=== PATIENT | female | born 1970 | race Two or more races ===

== ENCOUNTER 2020-03-06 12:33 | Inpatient (IN) | payer OTHER ==
[~2020-03-06] VITALS: Ht 175.3 cm; Wt 101.1 kg
[2020-03-06] MEDS ORDERED: MORPHINE SULFATE 10 MG/ML VIAL. IV ONE (13:00)
[2020-03-06 13:08] LABS: BASO % 1 % (0-3); EOS # 0.2 x10^3/uL (0.0-0.7); EOS % 3 % (0-3); HEMATOCRIT 39.1 % (36.0-47.0); HEMOGLOBIN 13.3 g/dL (12.0-15.5); LYMPH % 32 % (24-48); MEAN CORPUSCULAR HEMOGLOBIN 30 pg (25-35); MEAN CORPUSCULAR HGB CONC 34 g/dL (31-37); MEAN CORPUSCULAR VOLUME 89 fL (79-100); MONO # 0.7 x10^3/uL (0.0-1.1); MONO % 11 % (0-9); NEUT # 3.4 x10^3/uL (1.8-7.7); NEUT % 54 % (31-73); PLATELET COUNT 231 x10^3/uL (140-400); RED BLOOD COUNT 4.41 x10^6/uL (3.50-5.40); RED CELL DISTRIBUTION WIDTH 13.3 % (11.5-14.5); WHITE BLOOD COUNT 6.3 x10^3/uL (4.0-11.0)
[2020-03-06 13:08] LABS: BILIRUBIN,URINE NEGATIVE (NEG); CLARITY,URINE CLEAR; COLOR,URINE YELLOW; NITRITE,URINE NEGATIVE (NEG); PROTEIN,URINE NEGATIVE (NEG-TRACE)
[2020-03-06 13:17] LABS: SQUAMOUS EPITHELIAL CELL,UR MANY /LPF
[2020-03-06 13:18] LABS: CALCIUM 8.2 mg/dL (8.5-10.1); CREATININE 0.8 mg/dL (0.6-1.0); GFR 75.6; POTASSIUM 3.9 mmol/L (3.5-5.1)
[2020-03-06 13:19] LABS: BACTERIA,URINE MANY /HPF (0-FEW)
[2020-03-06 13:23] LABS: BARBITURATES NEG (NEG); BENZODIAZEPINES POS (NEG); CANNABINOIDS NEG (NEG); COCAINE NEG (NEG); METHADONE NEG (NEG); OPIATES POS (NEG); PHENCYCLIDINE NEG (NEG)
[2020-03-06 13:24] LABS: AMPHETAMINE/METHAMPHETAMINE NEG (NEG)
[2020-03-06 13:24] LABS: ALBUMIN 3.8 g/dL (3.4-5.0); ALBUMIN/GLOBULIN RATIO 1.1 (1.0-1.7); MAGNESIUM 1.7 mg/dL (1.8-2.4); TOTAL BILIRUBIN 0.5 mg/dL (0.2-1.0); TOTAL PROTEIN 7.3 g/dL (6.4-8.2)
--- NOTE | 2020-03-06 13:28 | PHYS DOC ---
Past Medical History Past Medical History: Anxiety, Depression Additional Past Medical Histor: vin Past Surgical History: Cholecystectomy, Gastric Bypass, Tonsillectomy Additional Past Surgical Histo: EMILIA-EN-Y, INTUSSUSCEPTION, UTERINE ABLATION, BREAST AUG. Smoking Status: Never Smoker Alcohol Use: None General Adult EDM: Chief Complaint: ABDOMINAL PAIN HPI: HPI: Patient is a 50 year old female with a history of depression, anxiety, gastric bypass/Emilia En Y roughly 6 years ago, who presents to the ED today complaining of 3 out of 10 contraction pain at the epigastric region that began 1-1/2 hours ago. Patient reports having intussusceptions with multiple surgeries due to complications from gastric bypass. Denies any nausea, vomiting, denies diarrhea . Denies any constipation. She states she tried taking her Librium which was prescribed for abd pain with no relief. She states she tried drinking a sip of water to help replace it with no relief. Review of Systems: Review of Systems: Constitutional: Denies fever or chills. [] Eyes: Denies change in visual acuity. [] HENT: Denies nasal congestion or sore throat. [] Respiratory: Denies cough or shortness of breath. [] Cardiovascular: Denies chest pain or edema. [] GI: Reports abdominal pain, denies nausea, vomiting, bloody stools or diarrhea. [] : Denies dysuria. [] Musculoskeletal: Denies back pain or joint pain. [] Integument: Denies rash. [] Neurologic: Denies headache, focal weakness or sensory changes. [] Psychiatric: Denies depression or anxiety. [] Heart Score: Risk Factors: Risk Factors: DM, Current or recent (<one month) smoker, HTN, HLP, family history of CAD, obesity. Risk Scores: Score 0 - 3: 2.5% MACE over next 6 weeks - Discharge Home Score 4 - 6: 20.3% MACE over next 6 weeks - Admit for Clinical Observation Score 7 - 10: 72.7% MACE over next 6 weeks - Early Invasive Strategies Current Medications: Current Medications Medications (Trade) Dose Ordered Sig/Preet Start Time Stop Time Status Last Admin Dose Admin Famotidine (Pepcid Vial) 20 mg 1X ONCE 03/06/20 13:30 03/06/20 13:31 03/06/20 13:18 20 MG Morphine Sulfate (Morphine Sulfate) 5 mg 1X ONCE 03/06/20 13:00 03/06/20 13:09 DC 03/06/20 13:15 5 MG Ondansetron HCl (Zofran) 4 mg 1X ONCE 03/06/20 13:30 03/06/20 13:31 03/06/20 13:14 4 MG Allergies: Allergies: Allergies Coded Allergies Type Severity Reaction Last Updated Verified Iodine and Iodide Containing Produc Allergy Unknown 03/06/20 Yes Sulfa (Sulfonamide Antibiotics) Allergy Unknown 03/06/20 Yes codeine Allergy Unknown 03/06/20 Yes shellfish derived Allergy Unknown 03/06/20 Yes Physical Exam: PE: Constitutional: Well developed, well nourished, no acute distress, non-toxic appearance. [] HENT: Normocephalic, atraumatic, bilateral external ears normal, oropharynx moist, no oral exudates, nose normal. [] Eyes: PERRLA, EOMI, conjunctiva normal, no discharge. [] Neck: Normal range of motion, no tenderness, supple, no stridor. [] Cardiovascular:Heart rate regular rhythm, no murmur [] Lungs & Thorax: Bilateral breath sounds clear to auscultation [] Abdomen: Bowel sounds normal, soft, mild tenderness at the epigastric region, no right upper quadrant or right lower quadrant tenderness, no masses, no pulsatile masses. [] Skin: Warm, dry, no erythema, no rash. [] Back: No tenderness, no CVA tenderness. [] Extremities: No tenderness, no cyanosis, no clubbing, ROM intact, no edema. [] Neurologic: Alert and oriented X 3, normal motor function, normal sensory function, no focal deficits noted. [] Psychologic: Affect normal, judgement normal, mood normal. [] Current Patient Data: Labs: Laboratory Tests Test 03/06/20 12:40 03/06/20 12:50 Urine Collection Type Unknown Urine Color Yellow Urine Clarity Clear Urine pH 5.0 (<5.0-8.0) Urine Specific [place] 1.025 (1.000-1.030) Urine Protein Negative mg/dL (NEG-TRACE) Urine Glucose (UA) Negative mg/dL (NEG) Urine Ketones (Stick) Negative mg/dL (NEG) Urine Blood Negative (NEG) Urine Nitrite Negative (NEG) Urine Bilirubin Negative (NEG) Urine Urobilinogen Dipstick 1.0 mg/dL (0.2 mg/dL) Urine Leukocyte Esterase Small (NEG) Urine RBC 1-2 /HPF (0-2) Urine WBC 11-20 /HPF (0-4) Urine Squamous Epithelial Cells Many /LPF Urine Bacteria Many /HPF (0-FEW) Urine Mucus Marked /LPF White Blood Count 6.3 x10^3/uL (4.0-11.0) Red Blood Count 4.41 x10^6/uL (3.50-5.40) Hemoglobin 13.3 g/dL (12.0-15.5) Hematocrit 39.1 % (36.0-47.0) Mean Corpuscular Volume 89 fL (79-100) Mean Corpuscular Hemoglobin 30 pg (25-35) Mean Corpuscular Hemoglobin Concent 34 g/dL (31-37) Red Cell Distribution Width 13.3 % (11.5-14.5) Platelet Count 231 x10^3/uL (140-400) Neutrophils (%) (Auto) 54 % (31-73) Lymphocytes (%) (Auto) 32 % (24-48) Monocytes (%) (Auto) 11 % (0-9) H Eosinophils (%) (Auto) 3 % (0-3) Basophils (%) (Auto) 1 % (0-3) Neutrophils # (Auto) 3.4 x10^3/uL (1.8-7.7) Lymphocytes # (Auto) 2.0 x10^3/uL (1.0-4.8) Monocytes # (Auto) 0.7 x10^3/uL (0.0-1.1) Eosinophils # (Auto) 0.2 x10^3/uL (0.0-0.7) Basophils # (Auto) 0.0 x10^3/uL (0.0-0.2) Sodium Level 140 mmol/L (136-145) Potassium Level 3.9 mmol/L (3.5-5.1) Chloride Level 104 mmol/L (98-107) Carbon Dioxide Level 30 mmol/L (21-32) Anion Gap 6 (6-14) Blood Urea Nitrogen 19 mg/dL (7-20) Creatinine 0.8 mg/dL (0.6-1.0) Estimated GFR (Cockcroft-Gault) 75.6 BUN/Creatinine Ratio 24 (6-20) H Glucose Level 76 mg/dL (70-99) Calcium Level 8.2 mg/dL (8.5-10.1) L Magnesium Level Pending Total Bilirubin Pending Aspartate Amino Transferase (AST) Pending Alanine Aminotransferase (ALT) Pending Alkaline Phosphatase Pending Total Protein Pending Albumin Pending Albumin/Globulin Ratio Pending Lipase Pending Ethyl Alcohol Level < 10 mg/dL (0-10) Laboratory Tests 03/06/20 12:50 Laboratory Tests 03/06/20 12:50 Vital Signs: Vital Signs Date Time Temp Pulse Resp B/P (MAP) Pulse Ox O2 Delivery O2 Flow Rate FiO2 03/06/20 13:15 Room Air 03/06/20 12:35 98.2 62 20 123/85 (98) 98 98.2 EKG: EKG: [] Radiology/Procedures: Radiology/Procedures: []PROCEDURE: CT ABDOMEN PELVIS WO CONTRAST CT abdomen pelvis without contrast dated 03/06/2020. No comparison available. Clinical data indication: Abdominal pain. History of prior gastric bypass. TECHNIQUE: Contiguous axial imaging the abdomen pelvis performed without the administration of IV contrast. No oral contrast administered. One or more of the following individualized dose reduction techniques were utilized for this examination: 1. Automated exposure control 2. Adjustment of the mA and/or kV according to patient size 3. Use of iterative reconstruction technique FINDINGS: Limited images of lung bases are clear. Heart size within normal limits. No pleural or pericardial effusion. Solid abdominal viscera not well evaluated in the absence of contrast material. No apparent attenuation abnormality of the liver or spleen. The spleen is normal in size. Pancreas, adrenal glands and kidneys are unremarkable. No stone or hydronephrosis. Gallbladder surgically absent. Evidence of prior gastric bypass. The GI tract is normal in caliber and contour. No focal bowel wall thickening. Appendix normal in caliber. No ascites or lymphadenopathy. There are a few scattered diverticula within the colon. No paracolonic inflammatory changes. No ascites or lymphadenopathy. The abdominal aorta is normal in caliber. Images of pelvis show nondistended urinary bladder. Uterus and adnexa are unremarkable. No free fluid or lymphadenopathy. Bone windows show no acute findings. Mild lower lumbar spondylosis. IMPRESSION: 1. No acute abnormality of abdomen or pelvis. No renal stone or hydronephrosis. 2. Normal appendix. 3. Status post cholecystectomy and prior gastric bypass. Electronically signed by: Marco Lam MD (03/06/2020 1:42 PM) [facility] [place] DICTATED and SIGNED BY: MARCO LAM MD DATE: 03/06/20 1342 Course & Med Decision Making: Course & Med Decision Making Pertinent Labs and Imaging studies reviewed. (See chart for details) This is a 50-year-old female patient presenting to the ED today complaining of epigastric abdominal pain that began an hour and a half ago. Patient has history of gastric bypass with multiple intussusception of the intestines and surgeries to fix this. Labs are negative. CT of the abdomen and pelvic is negative. Patient has been complaining about pain since arrival to the ED. She had been given 2 doses of morphine with no relief. Dilaudid ordered. I spoke to her about her results. She states she believes she has intussusception that typically does not show up on CAT scan. Informed patient she will be admitted and general surgery will be consulted. Spoke with Dr. Roy who will f/u with patient Spoke with Dr. Juarez who accepted patient for admission Shabana Disclaimer: Shabana Disclaimer: This electronic medical record was generated, in whole or in part, using a voice recognition dictation system. Departure Departure Impression: Primary Impression: Intractable abdominal pain Disposition: ADMITTED INPATIENT Condition: STABLE Referrals: NO PCP (PCP) Justicifation of Admission Dx: Justifications for Admission: Justification of Admission Dx: Yes Comments: intractible abdominal pain CHRISTIE ARECHIGA APRN Mar 06, 2020 13:28
[2020-03-06] MEDS ORDERED: FAMOTIDINE 20 MG/2 ML VIAL IVP ONE (13:30)
[2020-03-06] MEDS ORDERED: ONDANSETRON PF 4 MG/2 ML VIAL. IVP ONE ×2 (13:30→15:30)
--- NOTE | 2020-03-06 13:45 | RAD ---
CT abdomen pelvis without contrast dated 03/06/2020. No comparison available. Clinical data indication: Abdominal pain. History of prior gastric bypass. TECHNIQUE: Contiguous axial imaging the abdomen pelvis performed without the administration of IV contrast. No oral contrast administered. One or more of the following individualized dose reduction techniques were utilized for this examination: 1. Automated exposure control 2. Adjustment of the mA and/or kV according to patient size 3. Use of iterative reconstruction technique FINDINGS: Limited images of lung bases are clear. Heart size within normal limits. No pleural or pericardial effusion. Solid abdominal viscera not well evaluated in the absence of contrast material. No apparent attenuation abnormality of the liver or spleen. The spleen is normal in size. Pancreas, adrenal glands and kidneys are unremarkable. No stone or hydronephrosis. Gallbladder surgically absent. Evidence of prior gastric bypass. The GI tract is normal in caliber and contour. No focal bowel wall thickening. Appendix normal in caliber. No ascites or lymphadenopathy. There are a few scattered diverticula within the colon. No paracolonic inflammatory changes. No ascites or lymphadenopathy. The abdominal aorta is normal in caliber. Images of pelvis show nondistended urinary bladder. Uterus and adnexa are unremarkable. No free fluid or lymphadenopathy. Bone windows show no acute findings. Mild lower lumbar spondylosis. IMPRESSION: 1. No acute abnormality of abdomen or pelvis. No renal stone or hydronephrosis. 2. Normal appendix. 3. Status post cholecystectomy and prior gastric bypass. Electronically signed by: Marco Lam MD (03/06/2020 1:42 PM) [facility]
[2020-03-06] MEDS ORDERED: HYDROmorphone 2 MG/ML VIAL IV ONE ×2 (14:00→15:30)
--- NOTE | 2020-03-06 15:17 | PDOC1 ---
History and Physical Date of Admission Date of Admission DATE: 03/06/20 TIME: 15:16 Identification/Chief Complaint Chief Complaint SEEN IN ER WITH EPIGASTRIC PAIN, HX BARIATRIC SURGERY OUT OF STATE 50 year old female with a history of depression, anxiety, gastric bypass/Emilia En Y roughly 6 years ago, who presents to the ED today complaining of 3 out of 10 contraction pain at the epigastric region that began 1-1/2 hours ago. Patient reports having intussusceptions with multiple surgeries due to complications from gastric bypass. Denies any nausea, vomiting, denies diarrhea. Denies any constipation. She states she tried taking her Librium which was prescribed for abd pain with no relief. She states she tried drinking a sip of water to help replace it with no relief. 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 Smoking Status: Never Smoker Alcohol Use: None FHX OBESITY Cardiovascular: No pertinent hx, Hyperlipidemia Heme/Onc: No pertinent hx ENT: No pertinent hx Renal/: No pertinent hx Family History Family History: High Cholestrol Social History Smoke: No ALCOHOL: none Drugs: None Current Medications Current Medications Current Medications Famotidine (Pepcid Vial) 20 mg 1X ONCE IVP Last administered on 03/06/20at 13:18; Start 03/06/20 at 13:30; Stop 03/06/20 at 13:31; Status DC Ondansetron HCl (Zofran) 4 mg 1X ONCE IVP Last administered on 03/06/20at 13:14; Start 03/06/20 at 13:30; Stop 03/06/20 at 13:31; Status DC Morphine Sulfate (Morphine Sulfate) 5 mg 1X ONCE IV Last administered on 03/06/20at 13:15; Start 03/06/20 at 13:00; Stop 03/06/20 at 13:09; Status DC Hydromorphone HCl (Dilaudid) 1 mg 1X ONCE IV Last administered on 03/06/20at 14:06; Start 03/06/20 at 14:00; Stop 8/6/20 at 14:01; Status DC Allergies Allergies: Coded Allergies: Iodine and Iodide Containing Produc (Verified Allergy, Unknown, 03/06/20) Sulfa (Sulfonamide Antibiotics) (Verified Allergy, Unknown, 03/06/20) codeine (Verified Allergy, Unknown, 03/06/20) shellfish derived (Verified Allergy, Unknown, 03/06/20) ROS Review of System Review of Systems: Constitutional: Denies fever or chills. [] Eyes: Denies change in visual acuity. [] HENT: Denies nasal congestion or sore throat. [] Respiratory: Denies cough or shortness of breath. [] Cardiovascular: Denies chest pain or edema. [] GI: Reports abdominal pain, denies nausea, vomiting, bloody stools or diarrhea. [] : Denies dysuria. [] Musculoskeletal: Denies back pain or joint pain. [] Integument: Denies rash. [] Neurologic: Denies headache, focal weakness or sensory changes. [] Psychiatric: Denies depression or anxiety. [] 14 pt ros otherwise neg PSYCHOLOGICAL ROS: YES: Anxiety; No: Behavioral Disorder, Concentration difficultie, Decreased libido, Depression, Disorientation, Hallucinations, Hostility, Irritablity, Memory difficulties, Mood Swings, Obsessive thoughts, Physical abuse, Sexual abuse, Sleep disturbances, Suicidal ideation, Other Hematological and Lymphatic: No: Bleeding Problems, Blood Clots, Blood Transfusions, Brusing, Night Sweats, Pallor, Swollen Lymph Nodes, Other Gastrointestinal: Yes Nausea, Yes Vomiting, Yes Abdominal Pain; No Diarrhea, No Constipation, No Melena, No Hematochezia, No Other Genitourinary: No Dysuria, No Frequency, No Incontinence, No Hematuria, No Retention, No Discharge, No Urgency, No Pain, No Flank Pain, No Other, No , No , No , No , No , No , No Physical Exam Physical Exam Constitutional: Well developed, well nourished, mild acute distress, non-toxic appearance. [] HENT: Normocephalic, atraumatic, bilateral external ears normal, oropharynx moist, no oral exudates, nose normal. [] Eyes: PERRLA, EOMI, conjunctiva normal, no discharge. [] Neck: Normal range of motion, no tenderness, supple, no stridor. [] Cardiovascular:Heart rate regular rhythm, no murmur [] Lungs & Thorax: Bilateral breath sounds clear to auscultation [] Abdomen: Bowel sounds normal, soft, mild tenderness at the epigastric region, no right upper quadrant or right lower quadrant tenderness, no masses, no pulsatile masses. [] Skin: Warm, dry, no erythema, no rash. [] Back: No tenderness, no CVA tenderness. [] Extremities: No tenderness, no cyanosis, no clubbing, ROM intact, no edema. [] Neurologic: Alert and oriented X 3, normal motor function, normal sensory function, no focal deficits noted. [] Psychologic: Affect normal, judgment normal, mood normal. [] General: Alert, Oriented X3, Cooperative, mild distress HEENT: Atraumatic, PERRLA, EOMI, Mucous membr. moist/pink Lungs: Clear to auscultation, Normal air movement Heart: S1S2, RRR, no thrills Breasts: Not examined Abdomen: Normal bowel sounds, Soft Rectal Exam: not examined PELVIC: Examination not indicated Extremities: No cyanosis, No edema Skin: No rashes, No breakdown Neuro: Normal speech, Strength at 5/5 X4 ext, Normal tone, Sensation intact, Cranial nerves 3-12 NL Psych/Mental Status: Mental status NL, Mood NL Vitals Vitals Vital Signs Date Time Temp Pulse Resp B/P (MAP) Pulse Ox O2 Delivery O2 Flow Rate FiO2 03/06/20 14:06 Room Air 03/06/20 12:35 98.2 62 20 123/85 (98) 98 98.2 Labs Labs Laboratory Tests Test 03/06/20 12:40 03/06/20 12:50 Urine Collection Type Unknown Urine Color Yellow Urine Clarity Clear Urine pH 5.0 (<5.0-8.0) Urine Specific [place] 1.025 (1.000-1.030) Urine Protein Negative mg/dL (NEG-TRACE) Urine Glucose (UA) Negative mg/dL (NEG) Urine Ketones (Stick) Negative mg/dL (NEG) Urine Blood Negative (NEG) Urine Nitrite Negative (NEG) Urine Bilirubin Negative (NEG) Urine Urobilinogen Dipstick 1.0 mg/dL (0.2 mg/dL) Urine Leukocyte Esterase Small (NEG) Urine RBC 1-2 /HPF (0-2) Urine WBC 11-20 /HPF (0-4) Urine Squamous Epithelial Cells Many /LPF Urine Bacteria Many /HPF (0-FEW) Urine Mucus Marked /LPF Urine Opiates Screen Pos (NEG) Urine Methadone Screen Neg (NEG) Urine Barbiturates Neg (NEG) Urine Phencyclidine Screen Neg (NEG) Urine Amphetamine/Methamphetamine Neg (NEG) Urine Benzodiazepines Screen Pos (NEG) Urine Cocaine Screen Neg (NEG) Urine Cannabinoids Screen Neg (NEG) Urine Ethyl Alcohol Neg (NEG) White Blood Count 6.3 x10^3/uL (4.0-11.0) Red Blood Count 4.41 x10^6/uL (3.50-5.40) Hemoglobin 13.3 g/dL (12.0-15.5) Hematocrit 39.1 % (36.0-47.0) Mean Corpuscular Volume 89 fL (79-100) Mean Corpuscular Hemoglobin 30 pg (25-35) Mean Corpuscular Hemoglobin Concent 34 g/dL (31-37) Red Cell Distribution Width 13.3 % (11.5-14.5) Platelet Count 231 x10^3/uL (140-400) Neutrophils (%) (Auto) 54 % (31-73) Lymphocytes (%) (Auto) 32 % (24-48) Monocytes (%) (Auto) 11 % (0-9) Eosinophils (%) (Auto) 3 % (0-3) Basophils (%) (Auto) 1 % (0-3) Neutrophils # (Auto) 3.4 x10^3/uL (1.8-7.7) Lymphocytes # (Auto) 2.0 x10^3/uL (1.0-4.8) Monocytes # (Auto) 0.7 x10^3/uL (0.0-1.1) Eosinophils # (Auto) 0.2 x10^3/uL (0.0-0.7) Basophils # (Auto) 0.0 x10^3/uL (0.0-0.2) Sodium Level 140 mmol/L (136-145) Potassium Level 3.9 mmol/L (3.5-5.1) Chloride Level 104 mmol/L (98-107) Carbon Dioxide Level 30 mmol/L (21-32) Anion Gap 6 (6-14) Blood Urea Nitrogen 19 mg/dL (7-20) Creatinine 0.8 mg/dL (0.6-1.0) Estimated GFR (Cockcroft-Gault) 75.6 BUN/Creatinine Ratio 24 (6-20) Glucose Level 76 mg/dL (70-99) Calcium Level 8.2 mg/dL (8.5-10.1) Magnesium Level 1.7 mg/dL (1.8-2.4) Total Bilirubin 0.5 mg/dL (0.2-1.0) Aspartate Amino Transf (AST/SGOT) 28 U/L (15-37) Alanine Aminotransferase (ALT/SGPT) 25 U/L (14-59) Alkaline Phosphatase 102 U/L (46-116) Total Protein 7.3 g/dL (6.4-8.2) Albumin 3.8 g/dL (3.4-5.0) Albumin/Globulin Ratio 1.1 (1.0-1.7) Lipase 83 U/L (73-393) Ethyl Alcohol Level < 10 mg/dL (0-10) Laboratory Tests Test 03/06/20 12:40 03/06/20 12:50 Urine Collection Type Unknown Urine Color Yellow Urine Clarity Clear Urine pH 5.0 (<5.0-8.0) Urine Specific [place] 1.025 (1.000-1.030) Urine Protein Negative mg/dL (NEG-TRACE) Urine Glucose (UA) Negative mg/dL (NEG) Urine Ketones (Stick) Negative mg/dL (NEG) Urine Blood Negative (NEG) Urine Nitrite Negative (NEG) Urine Bilirubin Negative (NEG) Urine Urobilinogen Dipstick 1.0 mg/dL (0.2 mg/dL) Urine Leukocyte Esterase Small (NEG) Urine RBC 1-2 /HPF (0-2) Urine WBC 11-20 /HPF (0-4) Urine Squamous Epithelial Cells Many /LPF Urine Bacteria Many /HPF (0-FEW) Urine Mucus Marked /LPF Urine Opiates Screen Pos (NEG) Urine Methadone Screen Neg (NEG) Urine Barbiturates Neg (NEG) Urine Phencyclidine Screen Neg (NEG) Urine Amphetamine/Methamphetamine Neg (NEG) Urine Benzodiazepines Screen Pos (NEG) Urine Cocaine Screen Neg (NEG) Urine Cannabinoids Screen Neg (NEG) Urine Ethyl Alcohol Neg (NEG) White Blood Count 6.3 x10^3/uL (4.0-11.0) Red Blood Count 4.41 x10^6/uL (3.50-5.40) Hemoglobin 13.3 g/dL (12.0-15.5) Hematocrit 39.1 % (36.0-47.0) Mean Corpuscular Volume 89 fL (79-100) Mean Corpuscular Hemoglobin 30 pg (25-35) Mean Corpuscular Hemoglobin Concent 34 g/dL (31-37) Red Cell Distribution Width 13.3 % (11.5-14.5) Platelet Count 231 x10^3/uL (140-400) Neutrophils (%) (Auto) 54 % (31-73) Lymphocytes (%) (Auto) 32 % (24-48) Monocytes (%) (Auto) 11 % (0-9) Eosinophils (%) (Auto) 3 % (0-3) Basophils (%) (Auto) 1 % (0-3) Neutrophils # (Auto) 3.4 x10^3/uL (1.8-7.7) Lymphocytes # (Auto) 2.0 x10^3/uL (1.0-4.8) Monocytes # (Auto) 0.7 x10^3/uL (0.0-1.1) Eosinophils # (Auto) 0.2 x10^3/uL (0.0-0.7) Basophils # (Auto) 0.0 x10^3/uL (0.0-0.2) Sodium Level 140 mmol/L (136-145) Potassium Level 3.9 mmol/L (3.5-5.1) Chloride Level 104 mmol/L (98-107) Carbon Dioxide Level 30 mmol/L (21-32) Anion Gap 6 (6-14) Blood Urea Nitrogen 19 mg/dL (7-20) Creatinine 0.8 mg/dL (0.6-1.0) Estimated GFR (Cockcroft-Gault) 75.6 BUN/Creatinine Ratio 24 (6-20) Glucose Level 76 mg/dL (70-99) Calcium Level 8.2 mg/dL (8.5-10.1) Magnesium Level 1.7 mg/dL (1.8-2.4) Total Bilirubin 0.5 mg/dL (0.2-1.0) Aspartate Amino Transf (AST/SGOT) 28 U/L (15-37) Alanine Aminotransferase (ALT/SGPT) 25 U/L (14-59) Alkaline Phosphatase 102 U/L (46-116) Total Protein 7.3 g/dL (6.4-8.2) Albumin 3.8 g/dL (3.4-5.0) Albumin/Globulin Ratio 1.1 (1.0-1.7) Lipase 83 U/L (73-393) Ethyl Alcohol Level < 10 mg/dL (0-10) Images Images CT abdomen pelvis without contrast dated 03/06/2020. No comparison available. Clinical data indication: Abdominal pain. History of prior gastric bypass. TECHNIQUE: Contiguous axial imaging the abdomen pelvis performed without the administration of IV contrast. No oral contrast administered. One or more of the following individualized dose reduction techniques were utilized for this examination: 1. Automated exposure control 2. Adjustment of the mA and/or kV according to patient size 3. Use of iterative reconstruction technique FINDINGS: Limited images of lung bases are clear. Heart size within normal limits. No pleural or pericardial effusion. Solid abdominal viscera not well evaluated in the absence of contrast material. No apparent attenuation abnormality of the liver or spleen. The spleen is normal in size. Pancreas, adrenal glands and kidneys are unremarkable. No stone or hydronephrosis. Gallbladder surgically absent. Evidence of prior gastric bypass. The GI tract is normal in caliber and contour. No focal bowel wall thickening. Appendix normal in caliber. No ascites or lymphadenopathy. There are a few scattered diverticula within the colon. No paracolonic inflammatory changes. No ascites or lymphadenopathy. The abdominal aorta is normal in caliber. Images of pelvis show nondistended urinary bladder. Uterus and adnexa are unremarkable. No free fluid or lymphadenopathy. Bone windows show no acute findings. Mild lower lumbar spondylosis. IMPRESSION: 1. No acute abnormality of abdomen or pelvis. No renal stone or hydronephrosis. 2. Normal appendix. 3. Status post cholecystectomy and prior gastric bypass. Electronically signed by: Marco Lam MD (03/06/2020 1:42 PM) [facility] [place] SIGNED BY: MARCO LAM MD DATE: 03/06/20 134 VTE Prophylaxis Ordered VTE Prophylaxis Devices: Yes VTE Pharmacological Prophylaxi: Yes Assessment/Plan Assessment/Plan IMPRESSION: 1. intractable epigastric pain 2. No acute abnormality of abdomen or pelvis. No renal stone or hydronephrosis. by CT 03/06 3. Normal appendix. 4. Status post cholecystectomy and prior gastric bypass. 2013 5. OBESITY plan admit NPO Consult DR DE PAZ Reviewed with Dr De Paz, no definite surgical indications will consult GI PLAN TRANSFER TO [facility] when bed available dvt prophylaxis iv fluid support iv pain control HOME MEDS D/W ER DR Abdifation of Admission Dx: Justifications for Admission: Justification of Admission Dx: Yes Hypertension: [place] Worsening of Sym Comments: INTRACTABLE PAIN EDUARD AWAD MD Mar 06, 2020 15:17
[2020-03-06] MEDS ORDERED: HYDROmorphone 2 MG/ML VIAL IV PRN ×2 (16:00→17:30)
[2020-03-06] MEDS ORDERED: IV NORMAL SALINE 1000ML BAG 1,000 ML IV ONE (16:00)
[2020-03-06] MEDS ORDERED: ONDANSETRON PF 4 MG/2 ML VIAL. IV PRN ×2 (16:00→17:30)
--- NOTE | 2020-03-06 16:13 | PDOC2 ---
OLI CLINE HEMATOLOGIST ONCOLOGIST 03/06/20 1613: CONSULT Date of Consult Date of Consult DATE: 03/06/20 TIME: 16:04 Reason for Consult Reason for Consult: abd pain Referring Physician Referring Physician: ER Identification/Chief Complaint Chief Complaint abdominal pain Source Source: Chart review, Patient History of Present Illness Reason for Visit: Reports acute onset of epigastric pain. This occurs frequently, reports has had 6 surgeries for intussusception. The CTs always read negative. She takes Librium and was told if that does not fix pain in short time then report to ER. Hx of Aura. No nausea or emesis Past Medical History Psych: Anxiety, Depression Past Surgical History Past Surgical History: Cholecystectomy, Other (Aura [place], mulitple laparoscopies) Family History Family History: Other (noncontributory to current illness ) Social History No ALCOHOL: none Drugs: None Lives: with Family Current Medications Current Medications Current Medications Famotidine (Pepcid Vial) 20 mg 1X ONCE IVP Last administered on 03/06/20at 13:18; Start 03/06/20 at 13:30; Stop 03/06/20 at 13:31; Status DC Ondansetron HCl (Zofran) 4 mg 1X ONCE IVP Last administered on 03/06/20at 13:14; Start 03/06/20 at 13:30; Stop 03/06/20 at 13:31; Status DC Morphine Sulfate (Morphine Sulfate) 5 mg 1X ONCE IV Last administered on 03/06/20at 13:15; Start 03/06/20 at 13:00; Stop 03/06/20 at 13:09; Status DC Hydromorphone HCl (Dilaudid) 1 mg 1X ONCE IV Last administered on 03/06/20at 14:06; Start 03/06/20 at 14:00; Stop 03/06/20 at 14:01; Status DC Ondansetron HCl (Zofran) 4 mg 1X ONCE IVP Last administered on 03/06/20at 15:42; Start 03/06/20 at 15:30; Stop 03/06/20 at 15:35; Status DC Hydromorphone HCl (Dilaudid) 1 mg 1X ONCE IV Last administered on 03/06/20at 15:43; Start 03/06/20 at 15:30; Stop 03/06/20 at 15:35; Status DC Ondansetron HCl (Zofran) 4 mg PRN Q8HRS PRN IV NAUSEA/VOMITING; Start 03/06/20 at 16:00; Stop 03/07/20 at 15:59 Hydromorphone HCl (Dilaudid) 1 mg PRN Q3HRS PRN IV PAIN; Start 03/06/20 at 16:00 Sodium Chloride 1,000 ml @ 75 mls/hr 1X ONCE IV Last administered on 03/06/20at 15:58; Start 03/06/20 at 16:00; Stop 03/07/20 at 05:19 Allergies Allergies: Coded Allergies: Iodine and Iodide Containing Produc (Verified Allergy, Unknown, 03/06/20) Sulfa (Sulfonamide Antibiotics) (Verified Allergy, Unknown, 03/06/20) codeine (Verified Allergy, Unknown, 03/06/20) Can tolerate hydromorphone shellfish derived (Verified Allergy, Unknown, 03/06/20) ROS General: No: Chills, Other (fever ) PSYCHOLOGICAL ROS: No: Anxiety, Depression Eyes: No Blurry vision, No Double vision HEENT: No: Heacaches, Nasal congestion Hematological and Lymphatic: No: Bleeding Problems, Blood Clots Respiratory: No: Cough, Shortness of breath Cardiovascular: No Chest Pain, No Palpitations Gastrointestinal: Yes Other (see hpi) Genitourinary: No Dysuria, No Hematuria Musculoskeletal: No Muscle Pain Neurological: No Impaired Coord/balance, No Numbness/Tingling Skin: No Pruritus, No Rash Physical Exam General: Alert, Oriented X3, Cooperative HEENT: Atraumatic, PERRLA Lungs: Clear to auscultation, Normal air movement Heart: Regular rate, Normal S1, Normal S2 Abdomen: Soft, Other (moderate ttp on exam, ND) Extremities: No clubbing, No cyanosis Skin: No rashes, No breakdown Neuro: Normal gait, Normal speech Psych/Mental Status: Mental status NL, Mood NL MUSCULOSKELETAL: No deformity, No swelling Vitals VITALS Vital Signs Date Time Temp Pulse Resp B/P (MAP) Pulse Ox O2 Delivery O2 Flow Rate FiO2 03/06/20 15:43 33 98 03/06/20 14:30 76 126/77 (93) Room Air 03/06/20 12:35 98.2 98.2 Labs Labs Laboratory Tests Test 03/06/20 12:40 03/06/20 12:50 Urine Collection Type Unknown Urine Color Yellow Urine Clarity Clear Urine pH 5.0 (<5.0-8.0) Urine Specific [place] 1.025 (1.000-1.030) Urine Protein Negative mg/dL (NEG-TRACE) Urine Glucose (UA) Negative mg/dL (NEG) Urine Ketones (Stick) Negative mg/dL (NEG) Urine Blood Negative (NEG) Urine Nitrite Negative (NEG) Urine Bilirubin Negative (NEG) Urine Urobilinogen Dipstick 1.0 mg/dL (0.2 mg/dL) Urine Leukocyte Esterase Small (NEG) Urine RBC 1-2 /HPF (0-2) Urine WBC 11-20 /HPF (0-4) Urine Squamous Epithelial Cells Many /LPF Urine Bacteria Many /HPF (0-FEW) Urine Mucus Marked /LPF Urine Opiates Screen Pos (NEG) Urine Methadone Screen Neg (NEG) Urine Barbiturates Neg (NEG) Urine Phencyclidine Screen Neg (NEG) Urine Amphetamine/Methamphetamine Neg (NEG) Urine Benzodiazepines Screen Pos (NEG) Urine Cocaine Screen Neg (NEG) Urine Cannabinoids Screen Neg (NEG) Urine Ethyl Alcohol Neg (NEG) White Blood Count 6.3 x10^3/uL (4.0-11.0) Red Blood Count 4.41 x10^6/uL (3.50-5.40) Hemoglobin 13.3 g/dL (12.0-15.5) Hematocrit 39.1 % (36.0-47.0) Mean Corpuscular Volume 89 fL (79-100) Mean Corpuscular Hemoglobin 30 pg (25-35) Mean Corpuscular Hemoglobin Concent 34 g/dL (31-37) Red Cell Distribution Width 13.3 % (11.5-14.5) Platelet Count 231 x10^3/uL (140-400) Neutrophils (%) (Auto) 54 % (31-73) Lymphocytes (%) (Auto) 32 % (24-48) Monocytes (%) (Auto) 11 % (0-9) Eosinophils (%) (Auto) 3 % (0-3) Basophils (%) (Auto) 1 % (0-3) Neutrophils # (Auto) 3.4 x10^3/uL (1.8-7.7) Lymphocytes # (Auto) 2.0 x10^3/uL (1.0-4.8) Monocytes # (Auto) 0.7 x10^3/uL (0.0-1.1) Eosinophils # (Auto) 0.2 x10^3/uL (0.0-0.7) Basophils # (Auto) 0.0 x10^3/uL (0.0-0.2) Sodium Level 140 mmol/L (136-145) Potassium Level 3.9 mmol/L (3.5-5.1) Chloride Level 104 mmol/L (98-107) Carbon Dioxide Level 30 mmol/L (21-32) Anion Gap 6 (6-14) Blood Urea Nitrogen 19 mg/dL (7-20) Creatinine 0.8 mg/dL (0.6-1.0) Estimated GFR (Cockcroft-Gault) 75.6 BUN/Creatinine Ratio 24 (6-20) Glucose Level 76 mg/dL (70-99) Calcium Level 8.2 mg/dL (8.5-10.1) Magnesium Level 1.7 mg/dL (1.8-2.4) Total Bilirubin 0.5 mg/dL (0.2-1.0) Aspartate Amino Transf (AST/SGOT) 28 U/L (15-37) Alanine Aminotransferase (ALT/SGPT) 25 U/L (14-59) Alkaline Phosphatase 102 U/L (46-116) Total Protein 7.3 g/dL (6.4-8.2) Albumin 3.8 g/dL (3.4-5.0) Albumin/Globulin Ratio 1.1 (1.0-1.7) Lipase 83 U/L (73-393) Ethyl Alcohol Level < 10 mg/dL (0-10) Laboratory Tests Test 03/06/20 12:40 03/06/20 12:50 Urine Collection Type Unknown Urine Color Yellow Urine Clarity Clear Urine pH 5.0 (<5.0-8.0) Urine Specific [place] 1.025 (1.000-1.030) Urine Protein Negative mg/dL (NEG-TRACE) Urine Glucose (UA) Negative mg/dL (NEG) Urine Ketones (Stick) Negative mg/dL (NEG) Urine Blood Negative (NEG) Urine Nitrite Negative (NEG) Urine Bilirubin Negative (NEG) Urine Urobilinogen Dipstick 1.0 mg/dL (0.2 mg/dL) Urine Leukocyte Esterase Small (NEG) Urine RBC 1-2 /HPF (0-2) Urine WBC 11-20 /HPF (0-4) Urine Squamous Epithelial Cells Many /LPF Urine Bacteria Many /HPF (0-FEW) Urine Mucus Marked /LPF Urine Opiates Screen Pos (NEG) Urine Methadone Screen Neg (NEG) Urine Barbiturates Neg (NEG) Urine Phencyclidine Screen Neg (NEG) Urine Amphetamine/Methamphetamine Neg (NEG) Urine Benzodiazepines Screen Pos (NEG) Urine Cocaine Screen Neg (NEG) Urine Cannabinoids Screen Neg (NEG) Urine Ethyl Alcohol Neg (NEG) White Blood Count 6.3 x10^3/uL (4.0-11.0) Red Blood Count 4.41 x10^6/uL (3.50-5.40) Hemoglobin 13.3 g/dL (12.0-15.5) Hematocrit 39.1 % (36.0-47.0) Mean Corpuscular Volume 89 fL (79-100) Mean Corpuscular Hemoglobin 30 pg (25-35) Mean Corpuscular Hemoglobin Concent 34 g/dL (31-37) Red Cell Distribution Width 13.3 % (11.5-14.5) Platelet Count 231 x10^3/uL (140-400) Neutrophils (%) (Auto) 54 % (31-73) Lymphocytes (%) (Auto) 32 % (24-48) Monocytes (%) (Auto) 11 % (0-9) Eosinophils (%) (Auto) 3 % (0-3) Basophils (%) (Auto) 1 % (0-3) Neutrophils # (Auto) 3.4 x10^3/uL (1.8-7.7) Lymphocytes # (Auto) 2.0 x10^3/uL (1.0-4.8) Monocytes # (Auto) 0.7 x10^3/uL (0.0-1.1) Eosinophils # (Auto) 0.2 x10^3/uL (0.0-0.7) Basophils # (Auto) 0.0 x10^3/uL (0.0-0.2) Sodium Level 140 mmol/L (136-145) Potassium Level 3.9 mmol/L (3.5-5.1) Chloride Level 104 mmol/L (98-107) Carbon Dioxide Level 30 mmol/L (21-32) Anion Gap 6 (6-14) Blood Urea Nitrogen 19 mg/dL (7-20) Creatinine 0.8 mg/dL (0.6-1.0) Estimated GFR (Cockcroft-Gault) 75.6 BUN/Creatinine Ratio 24 (6-20) Glucose Level 76 mg/dL (70-99) Calcium Level 8.2 mg/dL (8.5-10.1) Magnesium Level 1.7 mg/dL (1.8-2.4) Total Bilirubin 0.5 mg/dL (0.2-1.0) Aspartate Amino Transf (AST/SGOT) 28 U/L (15-37) Alanine Aminotransferase (ALT/SGPT) 25 U/L (14-59) Alkaline Phosphatase 102 U/L (46-116) Total Protein 7.3 g/dL (6.4-8.2) Albumin 3.8 g/dL (3.4-5.0) Albumin/Globulin Ratio 1.1 (1.0-1.7) Lipase 83 U/L (73-393) Ethyl Alcohol Level < 10 mg/dL (0-10) Assessment/Plan Assessment/Plan abdominal pain multiple previous surgeries noncontrasted CT negative, lab normal I reviewed with Dr Roy, no definite surgical indications will consult GI KOLE ROY MD 03/07/20 1158: CONSULT Assessment/Plan Assessment/Plan Reviewed; CT reviewed, normal without signs of obstruction, intusussception; no surgical plans OLI CLINE APRN Mar 06, 2020 16:13 KOLE ROY MD Mar 07, 2020 11:58
[2020-03-06] MEDS ORDERED: PROCHLORPERAZINE 10 MG/2 ML VIAL. ONE (16:49)
[2020-03-06] MEDS ORDERED: PROCHLORPERAZINE 10 MG/2 ML VIAL. IV ONE (17:00)
[2020-03-06] MEDS ORDERED: 0.9 % SODIUM CHLORIDE 10 ML DISP.SYRIN. IV PRN (17:30)
[2020-03-06] MEDS ORDERED: MAG HYDROX/ALUMINUM HYD/SIMETH 30 ML ORAL.SUSP PO PRN (17:30)
[2020-03-06] MEDS ORDERED: DOCUSATE SODIUM 100 MG CAPSULE. PO PRN (17:30)
[2020-03-06] MEDS ORDERED: ACETAMINOPHEN 650 MG SUPP.RECT. PR PRN (17:30)
[2020-03-06] MEDS ORDERED: cloNIDine HCL 0.1 MG TABLET PO PRN (17:30)
[2020-03-06] MEDS ORDERED: guaiFENesin ORAL 200 MG/10 ML LIQUID. PO PRN (17:30)
[2020-03-06] MEDS ORDERED: ALBUTEROL SULFATE 2.5 MG/3 ML NEBU. NEB PRN (17:30)
[2020-03-06] MEDS ORDERED: SODIUM PHOSPHATES 19/7GM 133 ML ENEMA. PR PRN (17:30)
[2020-03-06] MEDS ORDERED: LORazepam 0.5 MG TABLET PO PRN (17:30)
[2020-03-06] MEDS: IV NORMAL SALINE 1000ML BAG 1,000 ML IV SCH (17:48)
[2020-03-06] MEDS ORDERED: ENOXAPARIN 40 MG/0.4 ML SYRINGE. SQ SCH (18:00)
[2020-03-06 19:00] VITALS: BP 129/72
[2020-03-06 23:00] VITALS: BP 142/54
[2020-03-07 02:37] LABS: BASO % 0 % (0-3); EOS # 0.1 x10^3/uL (0.0-0.7); EOS % 1 % (0-3); HEMATOCRIT 38.7 % (36.0-47.0); HEMOGLOBIN 12.9 g/dL (12.0-15.5); LYMPH # 1.5 x10^3/uL (1.0-4.8); LYMPH % 19 % (24-48); MEAN CORPUSCULAR HEMOGLOBIN 30 pg (25-35); MEAN CORPUSCULAR HGB CONC 33 g/dL (31-37); MEAN CORPUSCULAR VOLUME 90 fL (79-100); MONO # 0.6 x10^3/uL (0.0-1.1); MONO % 8 % (0-9); NEUT # 5.5 x10^3/uL (1.8-7.7); NEUT % 72 % (31-73); PLATELET COUNT 211 x10^3/uL (140-400); RED BLOOD COUNT 4.31 x10^6/uL (3.50-5.40); RED CELL DISTRIBUTION WIDTH 13.3 % (11.5-14.5); WHITE BLOOD COUNT 7.6 x10^3/uL (4.0-11.0)
[2020-03-07] MEDS: IV NORMAL SALINE 1000ML BAG 1,000 ML IV SCH (02:56)
[2020-03-07 03:00] VITALS: BP 99/59
[2020-03-07 07:00] VITALS: BP 111/65
--- NOTE | 2020-03-07 09:46 | PDOC ---
PROGRESS NOTES Date of Service: DATE: 03/07/20 TIME: 09:45 Chief Complaint Chief Complaint VTE Prophylaxis Ordered VTE Prophylaxis Devices: Yes VTE Pharmacological Prophylaxi: Yes discharge dx Assessment/Plan IMPRESSION: 1. intractable epigastric pain, resolved 2. No acute abnormality of abdomen or pelvis. No renal stone or hydronephrosis. by CT 03/06 3. Normal appendix. 4. Status post cholecystectomy and prior gastric bypass. 2013 5. OBESITY plan admit ADAT Consult DR DE PAZ Reviewed with Dr De Paz, no definite surgical indications will consult GI PLAN see dr [facility]OW[facility] dvt prophylaxis iv fluid support iv pain control HOME MEDS D/W ER DR GARCÍA AND SURGERY OK WITH D/C TODAY D/C PLANNING 26 MIN Justicifation of Admission Dx: Justicifation of Admission Dx: Justifications for Admission: Justification of Admission Dx: Yes Hypertension: [place] Worsening of Sym Comments: INTRACTABLE PAIN Vitals Vitals Vital Signs Date Time Temp Pulse Resp B/P (MAP) Pulse Ox O2 Delivery O2 Flow Rate FiO2 03/07/20 08:00 Room Air 03/07/20 07:00 98.2 53 18 111/65 (80) 94 98.2 Physical Exam General: Alert, Oriented X3, Cooperative, No acute distress Heart: Regular rate, Normal S1, Normal S2 Abdomen: Normal bowel sounds, Soft Extremities: No clubbing, No cyanosis, No edema Skin: No rashes, No breakdown Labs LABS Laboratory Tests Test 03/06/20 12:40 03/06/20 12:50 03/07/20 02:00 Urine Collection Type Unknown Urine Color Yellow Urine Clarity Clear Urine pH 5.0 (<5.0-8.0) Urine Specific [place] 1.025 (1.000-1.030) Urine Protein Negative mg/dL (NEG-TRACE) Urine Glucose (UA) Negative mg/dL (NEG) Urine Ketones (Stick) Negative mg/dL (NEG) Urine Blood Negative (NEG) Urine Nitrite Negative (NEG) Urine Bilirubin Negative (NEG) Urine Urobilinogen Dipstick 1.0 mg/dL (0.2 mg/dL) Urine Leukocyte Esterase Small (NEG) Urine RBC 1-2 /HPF (0-2) Urine WBC 11-20 /HPF (0-4) Urine Squamous Epithelial Cells Many /LPF Urine Bacteria Many /HPF (0-FEW) Urine Mucus Marked /LPF Urine Opiates Screen Pos (NEG) Urine Methadone Screen Neg (NEG) Urine Barbiturates Neg (NEG) Urine Phencyclidine Screen Neg (NEG) Urine Amphetamine/Methamphetamine Neg (NEG) Urine Benzodiazepines Screen Pos (NEG) Urine Cocaine Screen Neg (NEG) Urine Cannabinoids Screen Neg (NEG) Urine Ethyl Alcohol Neg (NEG) White Blood Count 6.3 x10^3/uL (4.0-11.0) 7.6 x10^3/uL (4.0-11.0) Red Blood Count 4.41 x10^6/uL (3.50-5.40) 4.31 x10^6/uL (3.50-5.40) Hemoglobin 13.3 g/dL (12.0-15.5) 12.9 g/dL (12.0-15.5) Hematocrit 39.1 % (36.0-47.0) 38.7 % (36.0-47.0) Mean Corpuscular Volume 89 fL (79-100) 90 fL (79-100) Mean Corpuscular Hemoglobin 30 pg (25-35) 30 pg (25-35) Mean Corpuscular Hemoglobin Concent 34 g/dL (31-37) 33 g/dL (31-37) Red Cell Distribution Width 13.3 % (11.5-14.5) 13.3 % (11.5-14.5) Platelet Count 231 x10^3/uL (140-400) 211 x10^3/uL (140-400) Neutrophils (%) (Auto) 54 % (31-73) 72 % (31-73) Lymphocytes (%) (Auto) 32 % (24-48) 19 % (24-48) Monocytes (%) (Auto) 11 % (0-9) 8 % (0-9) Eosinophils (%) (Auto) 3 % (0-3) 1 % (0-3) Basophils (%) (Auto) 1 % (0-3) 0 % (0-3) Neutrophils # (Auto) 3.4 x10^3/uL (1.8-7.7) 5.5 x10^3/uL (1.8-7.7) Lymphocytes # (Auto) 2.0 x10^3/uL (1.0-4.8) 1.5 x10^3/uL (1.0-4.8) Monocytes # (Auto) 0.7 x10^3/uL (0.0-1.1) 0.6 x10^3/uL (0.0-1.1) Eosinophils # (Auto) 0.2 x10^3/uL (0.0-0.7) 0.1 x10^3/uL (0.0-0.7) Basophils # (Auto) 0.0 x10^3/uL (0.0-0.2) 0.0 x10^3/uL (0.0-0.2) Sodium Level 140 mmol/L (136-145) Potassium Level 3.9 mmol/L (3.5-5.1) Chloride Level 104 mmol/L (98-107) Carbon Dioxide Level 30 mmol/L (21-32) Anion Gap 6 (6-14) Blood Urea Nitrogen 19 mg/dL (7-20) Creatinine 0.8 mg/dL (0.6-1.0) Estimated GFR (Cockcroft-Gault) 75.6 BUN/Creatinine Ratio 24 (6-20) Glucose Level 76 mg/dL (70-99) Calcium Level 8.2 mg/dL (8.5-10.1) Magnesium Level 1.7 mg/dL (1.8-2.4) Total Bilirubin 0.5 mg/dL (0.2-1.0) Aspartate Amino Transf (AST/SGOT) 28 U/L (15-37) Alanine Aminotransferase (ALT/SGPT) 25 U/L (14-59) Alkaline Phosphatase 102 U/L (46-116) Total Protein 7.3 g/dL (6.4-8.2) Albumin 3.8 g/dL (3.4-5.0) Albumin/Globulin Ratio 1.1 (1.0-1.7) Lipase 83 U/L (73-393) Ethyl Alcohol Level < 10 mg/dL (0-10) Assessment and Plan Assessmemt and Plan Problems Medical Problems: (1) Intractable abdominal pain Status: Acute Comment Review of Relevant I have reviewed the following items susie (where applicable) has been applied. Labs Laboratory Tests Test 03/06/20 12:40 03/06/20 12:50 03/07/20 02:00 Urine Collection Type Unknown Urine Color Yellow Urine Clarity Clear Urine pH 5.0 (<5.0-8.0) Urine Specific [place] 1.025 (1.000-1.030) Urine Protein Negative mg/dL (NEG-TRACE) Urine Glucose (UA) Negative mg/dL (NEG) Urine Ketones (Stick) Negative mg/dL (NEG) Urine Blood Negative (NEG) Urine Nitrite Negative (NEG) Urine Bilirubin Negative (NEG) Urine Urobilinogen Dipstick 1.0 mg/dL (0.2 mg/dL) Urine Leukocyte Esterase Small (NEG) Urine RBC 1-2 /HPF (0-2) Urine WBC 11-20 /HPF (0-4) Urine Squamous Epithelial Cells Many /LPF Urine Bacteria Many /HPF (0-FEW) Urine Mucus Marked /LPF Urine Opiates Screen Pos (NEG) Urine Methadone Screen Neg (NEG) Urine Barbiturates Neg (NEG) Urine Phencyclidine Screen Neg (NEG) Urine Amphetamine/Methamphetamine Neg (NEG) Urine Benzodiazepines Screen Pos (NEG) Urine Cocaine Screen Neg (NEG) Urine Cannabinoids Screen Neg (NEG) Urine Ethyl Alcohol Neg (NEG) White Blood Count 6.3 x10^3/uL (4.0-11.0) 7.6 x10^3/uL (4.0-11.0) Red Blood Count 4.41 x10^6/uL (3.50-5.40) 4.31 x10^6/uL (3.50-5.40) Hemoglobin 13.3 g/dL (12.0-15.5) 12.9 g/dL (12.0-15.5) Hematocrit 39.1 % (36.0-47.0) 38.7 % (36.0-47.0) Mean Corpuscular Volume 89 fL (79-100) 90 fL (79-100) Mean Corpuscular Hemoglobin 30 pg (25-35) 30 pg (25-35) Mean Corpuscular Hemoglobin Concent 34 g/dL (31-37) 33 g/dL (31-37) Red Cell Distribution Width 13.3 % (11.5-14.5) 13.3 % (11.5-14.5) Platelet Count 231 x10^3/uL (140-400) 211 x10^3/uL (140-400) Neutrophils (%) (Auto) 54 % (31-73) 72 % (31-73) Lymphocytes (%) (Auto) 32 % (24-48) 19 % (24-48) Monocytes (%) (Auto) 11 % (0-9) 8 % (0-9) Eosinophils (%) (Auto) 3 % (0-3) 1 % (0-3) Basophils (%) (Auto) 1 % (0-3) 0 % (0-3) Neutrophils # (Auto) 3.4 x10^3/uL (1.8-7.7) 5.5 x10^3/uL (1.8-7.7) Lymphocytes # (Auto) 2.0 x10^3/uL (1.0-4.8) 1.5 x10^3/uL (1.0-4.8) Monocytes # (Auto) 0.7 x10^3/uL (0.0-1.1) 0.6 x10^3/uL (0.0-1.1) Eosinophils # (Auto) 0.2 x10^3/uL (0.0-0.7) 0.1 x10^3/uL (0.0-0.7) Basophils # (Auto) 0.0 x10^3/uL (0.0-0.2) 0.0 x10^3/uL (0.0-0.2) Sodium Level 140 mmol/L (136-145) Potassium Level 3.9 mmol/L (3.5-5.1) Chloride Level 104 mmol/L (98-107) Carbon Dioxide Level 30 mmol/L (21-32) Anion Gap 6 (6-14) Blood Urea Nitrogen 19 mg/dL (7-20) Creatinine 0.8 mg/dL (0.6-1.0) Estimated GFR (Cockcroft-Gault) 75.6 BUN/Creatinine Ratio 24 (6-20) Glucose Level 76 mg/dL (70-99) Calcium Level 8.2 mg/dL (8.5-10.1) Magnesium Level 1.7 mg/dL (1.8-2.4) Total Bilirubin 0.5 mg/dL (0.2-1.0) Aspartate Amino Transf (AST/SGOT) 28 U/L (15-37) Alanine Aminotransferase (ALT/SGPT) 25 U/L (14-59) Alkaline Phosphatase 102 U/L (46-116) Total Protein 7.3 g/dL (6.4-8.2) Albumin 3.8 g/dL (3.4-5.0) Albumin/Globulin Ratio 1.1 (1.0-1.7) Lipase 83 U/L (73-393) Ethyl Alcohol Level < 10 mg/dL (0-10) Laboratory Tests Test 03/06/20 12:40 03/06/20 12:50 03/07/20 02:00 Urine Collection Type Unknown Urine Color Yellow Urine Clarity Clear Urine pH 5.0 (<5.0-8.0) Urine Specific [place] 1.025 (1.000-1.030) Urine Protein Negative mg/dL (NEG-TRACE) Urine Glucose (UA) Negative mg/dL (NEG) Urine Ketones (Stick) Negative mg/dL (NEG) Urine Blood Negative (NEG) Urine Nitrite Negative (NEG) Urine Bilirubin Negative (NEG) Urine Urobilinogen Dipstick 1.0 mg/dL (0.2 mg/dL) Urine Leukocyte Esterase Small (NEG) Urine RBC 1-2 /HPF (0-2) Urine WBC 11-20 /HPF (0-4) Urine Squamous Epithelial Cells Many /LPF Urine Bacteria Many /HPF (0-FEW) Urine Mucus Marked /LPF Urine Opiates Screen Pos (NEG) Urine Methadone Screen Neg (NEG) Urine Barbiturates Neg (NEG) Urine Phencyclidine Screen Neg (NEG) Urine Amphetamine/Methamphetamine Neg (NEG) Urine Benzodiazepines Screen Pos (NEG) Urine Cocaine Screen Neg (NEG) Urine Cannabinoids Screen Neg (NEG) Urine Ethyl Alcohol Neg (NEG) White Blood Count 6.3 x10^3/uL (4.0-11.0) 7.6 x10^3/uL (4.0-11.0) Red Blood Count 4.41 x10^6/uL (3.50-5.40) 4.31 x10^6/uL (3.50-5.40) Hemoglobin 13.3 g/dL (12.0-15.5) 12.9 g/dL (12.0-15.5) Hematocrit 39.1 % (36.0-47.0) 38.7 % (36.0-47.0) Mean Corpuscular Volume 89 fL (79-100) 90 fL (79-100) Mean Corpuscular Hemoglobin 30 pg (25-35) 30 pg (25-35) Mean Corpuscular Hemoglobin Concent 34 g/dL (31-37) 33 g/dL (31-37) Red Cell Distribution Width 13.3 % (11.5-14.5) 13.3 % (11.5-14.5) Platelet Count 231 x10^3/uL (140-400) 211 x10^3/uL (140-400) Neutrophils (%) (Auto) 54 % (31-73) 72 % (31-73) Lymphocytes (%) (Auto) 32 % (24-48) 19 % (24-48) Monocytes (%) (Auto) 11 % (0-9) 8 % (0-9) Eosinophils (%) (Auto) 3 % (0-3) 1 % (0-3) Basophils (%) (Auto) 1 % (0-3) 0 % (0-3) Neutrophils # (Auto) 3.4 x10^3/uL (1.8-7.7) 5.5 x10^3/uL (1.8-7.7) Lymphocytes # (Auto) 2.0 x10^3/uL (1.0-4.8) 1.5 x10^3/uL (1.0-4.8) Monocytes # (Auto) 0.7 x10^3/uL (0.0-1.1) 0.6 x10^3/uL (0.0-1.1) Eosinophils # (Auto) 0.2 x10^3/uL (0.0-0.7) 0.1 x10^3/uL (0.0-0.7) Basophils # (Auto) 0.0 x10^3/uL (0.0-0.2) 0.0 x10^3/uL (0.0-0.2) Sodium Level 140 mmol/L (136-145) Potassium Level 3.9 mmol/L (3.5-5.1) Chloride Level 104 mmol/L (98-107) Carbon Dioxide Level 30 mmol/L (21-32) Anion Gap 6 (6-14) Blood Urea Nitrogen 19 mg/dL (7-20) Creatinine 0.8 mg/dL (0.6-1.0) Estimated GFR (Cockcroft-Gault) 75.6 BUN/Creatinine Ratio 24 (6-20) Glucose Level 76 mg/dL (70-99) Calcium Level 8.2 mg/dL (8.5-10.1) Magnesium Level 1.7 mg/dL (1.8-2.4) Total Bilirubin 0.5 mg/dL (0.2-1.0) Aspartate Amino Transf (AST/SGOT) 28 U/L (15-37) Alanine Aminotransferase (ALT/SGPT) 25 U/L (14-59) Alkaline Phosphatase 102 U/L (46-116) Total Protein 7.3 g/dL (6.4-8.2) Albumin 3.8 g/dL (3.4-5.0) Albumin/Globulin Ratio 1.1 (1.0-1.7) Lipase 83 U/L (73-393) Ethyl Alcohol Level < 10 mg/dL (0-10) Medications Current Medications Famotidine (Pepcid Vial) 20 mg 1X ONCE IVP Last administered on 03/06/20at 13:18; Start 03/06/20 at 13:30; Stop 03/06/20 at 13:31; Status DC Ondansetron HCl (Zofran) 4 mg 1X ONCE IVP Last administered on 03/06/20at 13:14; Start 03/06/20 at 13:30; Stop 03/06/20 at 13:31; Status DC Morphine Sulfate (Morphine Sulfate) 5 mg 1X ONCE IV Last administered on 03/06/20at 13:15; Start 03/06/20 at 13:00; Stop 03/06/20 at 13:09; Status DC Hydromorphone HCl (Dilaudid) 1 mg 1X ONCE IV Last administered on 03/06/20at 14:06; Start 03/06/20 at 14:00; Stop 03/06/20 at 14:01; Status DC Ondansetron HCl (Zofran) 4 mg 1X ONCE IVP Last administered on 03/06/20at 15:42; Start 03/06/20 at 15:30; Stop 03/06/20 at 15:35; Status DC Hydromorphone HCl (Dilaudid) 1 mg 1X ONCE IV Last administered on 03/06/20at 15:43; Start 03/06/20 at 15:30; Stop 03/06/20 at 15:35; Status DC Ondansetron HCl (Zofran) 4 mg PRN Q8HRS PRN IV NAUSEA/VOMITING; Start 03/06/20 at 16:00; Stop 03/07/20 at 15:59 Hydromorphone HCl (Dilaudid) 1 mg PRN Q3HRS PRN IV PAIN Last administered on 03/06/20at 16:51; Start 03/06/20 at 16:00 Sodium Chloride 1,000 ml @ 75 mls/hr 1X ONCE IV Last administered on 03/06/20at 15:58; Start 03/06/20 at 16:00; Stop 03/07/20 at 05:19; Status DC Prochlorperazine Edisylate (Compazine) 10 mg 1X ONCE IV Last administered on 03/06/20at 16:51; Start 03/06/20 at 17:00; Stop 03/06/20 at 17:01; Status DC Prochlorperazine Edisylate (Compazine) 10 mg STK-MED ONCE .ROUTE ; Start 03/06/20 at 16:49; Stop 03/06/20 at 16:49; Status DC Sodium Chloride (Normal Saline Flush) 3 ml QSHIFT PRN IV AFTER MEDS AND BLOOD DRAWS; Start 03/06/20 at 17:30 Sodium Chloride 1,000 ml @ 100 mls/hr Q10H IV Last administered on 03/07/20at 02:56; Start 03/06/20 at 17:23 Ondansetron HCl (Zofran) 4 mg PRN Q4HRS PRN IV NAUSEA/VOMITING Last administered on 03/06/20at 20:26; Start 03/06/20 at 17:30 Acetaminophen (Tylenol Supp) 650 mg PRN Q4HRS PRN IN TEMP OVER 100.4F OR MILD PAIN; Start 03/06/20 at 17:30 Al Hydroxide/Mg Hydroxide (Mylanta Plus Xs) 30 ml PRN DAILY PRN PO HEARTBURN / GAS; Start 03/06/20 at 17:30 Clonidine HCl (Catapres) 0.1 mg PRN Q6HRS PRN PO SBP>160 OR DBP>90; Start 03/06/20 at 17:30 Sodium Monofluorophosphate (Fleet Adult) 133 ml PRN DAILY PRN IN CONSTIPATION; Start 03/06/20 at 17:30 Docusate Sodium (Colace) 100 mg PRN BID PRN PO HARD STOOLS; Start 03/06/20 at 17:30 Albuterol Sulfate (Ventolin Neb Soln) 2.5 mg PRN Q4HRS PRN NEB SHORTNESS OF BREATH; Start 03/06/20 at 17:30 Guaifenesin (Robitussin) 200 mg PRN Q4HRS PRN PO COUGH; Start 03/06/20 at 17:30 Lorazepam (Ativan) 0.5 mg PRN Q4HRS PRN PO ANXIETY / AGITATION; Start 03/06/20 at 17:30 Hydromorphone HCl (Dilaudid) 0.75 mg PRN Q2HRS PRN IV SEVERE PAIN 7-10; Start 03/06/20 at 17:30 Enoxaparin Sodium (Lovenox 40mg Syringe) 40 mg Q24H SQ ; Start 03/06/20 at 18:00 Vitals/I & O Vital Sign - Last 24 Hours 03/06/20 03/06/20 03/06/20 03/06/20 12:35 13:15 14:06 14:30 Temp 98.2 98.2 Pulse 62 76 Resp 20 33 B/P (MAP) 123/85 (98) 126/77 (93) Pulse Ox 98 99 O2 Delivery Room Air Room Air Room Air Room Air 03/06/20 03/06/20 03/06/20 03/06/20 15:00 15:30 15:43 16:00 Pulse 80 72 88 Resp 33 30 33 33 B/P (MAP) 128/59 (82) 118/59 (78) Pulse Ox 98 94 98 92 O2 Delivery Room Air Room Air Room Air 03/06/20 03/06/20 03/06/20 03/06/20 16:30 17:37 18:27 19:00 Temp 99.1 99.1 Pulse 88 50 Resp 16 18 B/P (MAP) 129/72 (91) Pulse Ox 99 95 O2 Delivery Room Air Room Air Room Air Room Air 03/06/20 03/06/20 03/06/20 03/07/20 20:00 20:44 23:00 03:00 Temp 97.9 99.1 97.9 99.1 Pulse 59 81 Resp 18 18 B/P (MAP) 142/54 (83) 99/59 (72) Pulse Ox 98 94 95 O2 Delivery Room Air Room Air Room Air 03/07/20 03/07/20 07:00 08:00 Temp 98.2 98.2 Pulse 53 Resp 18 B/P (MAP) 111/65 (80) Pulse Ox 94 O2 Delivery Room Air Room Air Intake and Output 03/06/20 03/06/20 03/07/20 15:00 23:00 07:00 Intake Total 1000 ml Balance 1000 ml Justicifation of Admission Dx: Justifications for Admission: Justification of Admission Dx: Yes Hypertension: Cresendo Worsening of Sym EDUARD AWAD MD Mar 07, 2020 09:46
--- NOTE | 2020-03-07 10:44 | PDOC2 ---
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 S/p Aura-en-Y in [place], [place] in 2010. Since then, 6 emergency surgeries for intussusception w/ bariatric surgeon in [place] - says CTs are always normal. Last surgery 2 years ago but frequently (at least once monthly, more more, maybe less) has epigastric bloating and 10/10 "contraction" type pain w/ radiation through back - these are her intussusception symptoms. Has been instructed to take Librium when this occurs and if symptoms don't resolve to go to ER which prompted evaluation here yesterday. Previous episode last week did resolve w/ med. Denies reflux/heartburn, dysphagia, n/v, diarrhea, constipation, hematochezia, melena. Lost 130 pounds w/ Aura-en-Y, now has gained some back particularly since sitting and working from home during coronavirus pandemic. No previous EGD or colonoscopy - had screening colonoscopy scheduled w/ international marketing executive (can't remember who) in [place] but cancelled. S/p cholecystectomy for stones. No liver, pancreas, or PUD history. Pain has resolved. Would like to try eating and consider discharge. PMH: PMH: Guillain-Hammond, neuropathy tubal ligation, cholecystectomy, Aura-en-Y, laparoscopies for intussusception x 6, partial thyroidectomy, uterine ablation, breast augmentation, panniculectomy FH: Family History: No pertinent hx Social History: Smoke: No ALCOHOL: none Drugs: None ROS: GEN: Denies fevers, chills, sweats HEENT: Denies blurred vision, sore throat CV: Denies chest pain RESP: Denies shortness of air, cough GI: Per HPI : Denies hematuria, dysuria ENDO: +weight gain NEURO: Denies confusion, dizziness MSK: Denies weakness, joint pain/swelling SKIN: Denies jaundice, pruritus Vitals: Vitals: Vital Signs Date Time Temp Pulse Resp B/P (MAP) Pulse Ox O2 Delivery O2 Flow Rate FiO2 03/07/20 08:00 Room Air 03/07/20 07:00 98.2 53 18 111/65 80 94 98.2 Labs: Labs: Laboratory Tests Test 03/06/20 12:40 03/06/20 12:50 03/07/20 02:00 Urine Collection Type Unknown Urine Color Yellow Urine Clarity Clear Urine pH 5.0 (<5.0-8.0) Urine Specific [place] 1.025 (1.000-1.030) Urine Protein Negative mg/dL (NEG-TRACE) Urine Glucose (UA) Negative mg/dL (NEG) Urine Ketones (Stick) Negative mg/dL (NEG) Urine Blood Negative (NEG) Urine Nitrite Negative (NEG) Urine Bilirubin Negative (NEG) Urine Urobilinogen Dipstick 1.0 mg/dL (0.2 mg/dL) Urine Leukocyte Esterase Small (NEG) Urine RBC 1-2 /HPF (0-2) Urine WBC 11-20 /HPF (0-4) Urine Squamous Epithelial Cells Many /LPF Urine Bacteria Many /HPF (0-FEW) Urine Mucus Marked /LPF Urine Opiates Screen Pos (NEG) Urine Methadone Screen Neg (NEG) Urine Barbiturates Neg (NEG) Urine Phencyclidine Screen Neg (NEG) Urine Amphetamine/Methamphetamine Neg (NEG) Urine Benzodiazepines Screen Pos (NEG) Urine Cocaine Screen Neg (NEG) Urine Cannabinoids Screen Neg (NEG) Urine Ethyl Alcohol Neg (NEG) White Blood Count 6.3 x10^3/uL (4.0-11.0) 7.6 x10^3/uL (4.0-11.0) Red Blood Count 4.41 x10^6/uL (3.50-5.40) 4.31 x10^6/uL (3.50-5.40) Hemoglobin 13.3 g/dL (12.0-15.5) 12.9 g/dL (12.0-15.5) Hematocrit 39.1 % (36.0-47.0) 38.7 % (36.0-47.0) Mean Corpuscular Volume 89 fL (79-100) 90 fL (79-100) Mean Corpuscular Hemoglobin 30 pg (25-35) 30 pg (25-35) Mean Corpuscular Hemoglobin Concent 34 g/dL (31-37) 33 g/dL (31-37) Red Cell Distribution Width 13.3 % (11.5-14.5) 13.3 % (11.5-14.5) Platelet Count 231 x10^3/uL (140-400) 211 x10^3/uL (140-400) Neutrophils (%) (Auto) 54 % (31-73) 72 % (31-73) Lymphocytes (%) (Auto) 32 % (24-48) 19 % (24-48) Monocytes (%) (Auto) 11 % (0-9) 8 % (0-9) Eosinophils (%) (Auto) 3 % (0-3) 1 % (0-3) Basophils (%) (Auto) 1 % (0-3) 0 % (0-3) Neutrophils # (Auto) 3.4 x10^3/uL (1.8-7.7) 5.5 x10^3/uL (1.8-7.7) Lymphocytes # (Auto) 2.0 x10^3/uL (1.0-4.8) 1.5 x10^3/uL (1.0-4.8) Monocytes # (Auto) 0.7 x10^3/uL (0.0-1.1) 0.6 x10^3/uL (0.0-1.1) Eosinophils # (Auto) 0.2 x10^3/uL (0.0-0.7) 0.1 x10^3/uL (0.0-0.7) Basophils # (Auto) 0.0 x10^3/uL (0.0-0.2) 0.0 x10^3/uL (0.0-0.2) Sodium Level 140 mmol/L (136-145) Potassium Level 3.9 mmol/L (3.5-5.1) Chloride Level 104 mmol/L (98-107) Carbon Dioxide Level 30 mmol/L (21-32) Anion Gap 6 (6-14) Blood Urea Nitrogen 19 mg/dL (7-20) Creatinine 0.8 mg/dL (0.6-1.0) Estimated GFR (Cockcroft-Gault) 75.6 BUN/Creatinine Ratio 24 (6-20) Glucose Level 76 mg/dL (70-99) Calcium Level 8.2 mg/dL (8.5-10.1) Magnesium Level 1.7 mg/dL (1.8-2.4) Total Bilirubin 0.5 mg/dL (0.2-1.0) Aspartate Amino Transf (AST/SGOT) 28 U/L (15-37) Alanine Aminotransferase (ALT/SGPT) 25 U/L (14-59) Alkaline Phosphatase 102 U/L (46-116) Total Protein 7.3 g/dL (6.4-8.2) Albumin 3.8 g/dL (3.4-5.0) Albumin/Globulin Ratio 1.1 (1.0-1.7) Lipase 83 U/L (73-393) Ethyl Alcohol Level < 10 mg/dL (0-10) Allergies: Coded Allergies: Iodine and Iodide Containing Produc (Verified Allergy, Unknown, 03/06/20) Sulfa (Sulfonamide Antibiotics) (Verified Allergy, Unknown, 03/06/20) codeine (Verified Allergy, Unknown, 03/06/20) Can tolerate hydromorphone shellfish derived (Verified Allergy, Unknown, 03/06/20) Medications: Current Medications Medications (Trade) Dose Ordered Sig/Preet Route PRN Reason Start Time Stop Time Status Last Admin Dose Admin Famotidine (Pepcid Vial) 20 mg 1X ONCE IVP 03/06/20 13:30 03/06/20 13:31 DC 03/06/20 13:18 Ondansetron HCl (Zofran) 4 mg 1X ONCE IVP 03/06/20 13:30 03/06/20 13:31 DC 03/06/20 13:14 Morphine Sulfate (Morphine Sulfate) 5 mg 1X ONCE IV 03/06/20 13:00 03/06/20 13:09 DC 03/06/20 13:15 Hydromorphone HCl (Dilaudid) 1 mg 1X ONCE IV 03/06/20 14:00 03/06/20 14:01 DC 03/06/20 14:06 Ondansetron HCl (Zofran) 4 mg 1X ONCE IVP 03/06/20 15:30 03/06/20 15:35 DC 03/06/20 15:42 Hydromorphone HCl (Dilaudid) 1 mg 1X ONCE IV 03/06/20 15:30 03/06/20 15:35 CT 03/06/20 15:43 Hydromorphone HCl (Dilaudid) 1 mg PRN Q3HRS PRN IV PAIN 03/06/20 16:00 03/06/20 16:51 Sodium Chloride 1,000 ml @ 75 mls/hr 1X ONCE IV 03/06/20 16:00 03/07/20 05:19 DC 03/06/20 15:58 Prochlorperazine Edisylate (Compazine) 10 mg 1X ONCE IV 03/06/20 17:00 03/06/20 17:01 DC 03/06/20 16:51 Sodium Chloride 1,000 ml @ 100 mls/hr Q10H IV 03/06/20 17:23 03/07/20 02:56 Ondansetron HCl (Zofran) 4 mg PRN Q4HRS PRN IV NAUSEA/VOMITING 03/06/20 17:30 03/06/20 20:26 Imaging: Imaging: CT A/P IMPRESSION: 1. No acute abnormality of abdomen or pelvis. No renal stone or hydronephrosis. 2. Normal appendix. 3. Status post cholecystectomy and prior gastric bypass. PE: GEN: NAD HEENT: Atraumatic, PERRL LUNGS: CTAB HEART: RRR ABD: NABS, S/ND. epigastric soreness - "it's always sore" EXTREMITY: No edema SKIN: No rashes, no jaundice NEURO/PSYCH: A & O 3 A/P: A/P: Abd pain - resolved H/o intussusception S/p Aura-en-Y CRC screen - none S/p cholecystectomy -- Okay to try diet and consider DC per GI - d/w nurse. Has established gastroenterology for screening colonoscopy when she's ready. Says she was told never to have an EGD. KOLE LEUNG MD 03/07/20 1049: TAJ DUEÑAS Mar 07, 2020 10:44 KOLE LEUNG MD Mar 07, 2020 10:49
[2020-03-07 11:00] VITALS: BP 118/64
[2020-03-07] MEDS ORDERED: ACETAMINOPHEN 325 MG TABLET. PO PRN (12:15)
--- NOTE | 2020-03-07 12:20 | PDOC ---
PROGRESS NOTES Date of Service DATE: 03/07/20 TIME: 12:19 Subjective Subjective pt much improved; feels ready to go home Objective Objective Vital Signs Date Time Temp Pulse Resp B/P (MAP) Pulse Ox O2 Delivery O2 Flow Rate FiO2 03/07/20 11:00 98.3 57 20 118/64 (82) 96 Room Air 98.3 Intake and Output 03/07/20 07:00 Intake Total 1000 ml Balance 1000 ml Intake IV Total 1000 ml # Voids 3 Physical Exam Abdomen: Soft, No tenderness Heart: Regular rate Extremities: No clubbing General: Oriented X3 HEENT: Atraumatic Lungs: Clear to auscultation Neuro: Normal speech Psych/Mental Status: Mental status NL Assessment Assessment Problems Medical Problems: (1) Intractable abdominal pain Status: Acute Plan Plan of Care Clinically improved; feels ready for discharge, no surgical plans Comment Review of Relevant I have reviewed the following items susie (where applicable) has been applied. Labs Laboratory Tests Test 03/06/20 12:40 03/06/20 12:50 03/07/20 02:00 Urine Collection Type Unknown Urine Color Yellow Urine Clarity Clear Urine pH 5.0 (<5.0-8.0) Urine Specific [place] 1.025 (1.000-1.030) Urine Protein Negative mg/dL (NEG-TRACE) Urine Glucose (UA) Negative mg/dL (NEG) Urine Ketones (Stick) Negative mg/dL (NEG) Urine Blood Negative (NEG) Urine Nitrite Negative (NEG) Urine Bilirubin Negative (NEG) Urine Urobilinogen Dipstick 1.0 mg/dL (0.2 mg/dL) Urine Leukocyte Esterase Small (NEG) Urine RBC 1-2 /HPF (0-2) Urine WBC 11-20 /HPF (0-4) Urine Squamous Epithelial Cells Many /LPF Urine Bacteria Many /HPF (0-FEW) Urine Mucus Marked /LPF Urine Opiates Screen Pos (NEG) Urine Methadone Screen Neg (NEG) Urine Barbiturates Neg (NEG) Urine Phencyclidine Screen Neg (NEG) Urine Amphetamine/Methamphetamine Neg (NEG) Urine Benzodiazepines Screen Pos (NEG) Urine Cocaine Screen Neg (NEG) Urine Cannabinoids Screen Neg (NEG) Urine Ethyl Alcohol Neg (NEG) White Blood Count 6.3 x10^3/uL (4.0-11.0) 7.6 x10^3/uL (4.0-11.0) Red Blood Count 4.41 x10^6/uL (3.50-5.40) 4.31 x10^6/uL (3.50-5.40) Hemoglobin 13.3 g/dL (12.0-15.5) 12.9 g/dL (12.0-15.5) Hematocrit 39.1 % (36.0-47.0) 38.7 % (36.0-47.0) Mean Corpuscular Volume 89 fL (79-100) 90 fL (79-100) Mean Corpuscular Hemoglobin 30 pg (25-35) 30 pg (25-35) Mean Corpuscular Hemoglobin Concent 34 g/dL (31-37) 33 g/dL (31-37) Red Cell Distribution Width 13.3 % (11.5-14.5) 13.3 % (11.5-14.5) Platelet Count 231 x10^3/uL (140-400) 211 x10^3/uL (140-400) Neutrophils (%) (Auto) 54 % (31-73) 72 % (31-73) Lymphocytes (%) (Auto) 32 % (24-48) 19 % (24-48) Monocytes (%) (Auto) 11 % (0-9) 8 % (0-9) Eosinophils (%) (Auto) 3 % (0-3) 1 % (0-3) Basophils (%) (Auto) 1 % (0-3) 0 % (0-3) Neutrophils # (Auto) 3.4 x10^3/uL (1.8-7.7) 5.5 x10^3/uL (1.8-7.7) Lymphocytes # (Auto) 2.0 x10^3/uL (1.0-4.8) 1.5 x10^3/uL (1.0-4.8) Monocytes # (Auto) 0.7 x10^3/uL (0.0-1.1) 0.6 x10^3/uL (0.0-1.1) Eosinophils # (Auto) 0.2 x10^3/uL (0.0-0.7) 0.1 x10^3/uL (0.0-0.7) Basophils # (Auto) 0.0 x10^3/uL (0.0-0.2) 0.0 x10^3/uL (0.0-0.2) Sodium Level 140 mmol/L (136-145) Potassium Level 3.9 mmol/L (3.5-5.1) Chloride Level 104 mmol/L (98-107) Carbon Dioxide Level 30 mmol/L (21-32) Anion Gap 6 (6-14) Blood Urea Nitrogen 19 mg/dL (7-20) Creatinine 0.8 mg/dL (0.6-1.0) Estimated GFR (Cockcroft-Gault) 75.6 BUN/Creatinine Ratio 24 (6-20) Glucose Level 76 mg/dL (70-99) Calcium Level 8.2 mg/dL (8.5-10.1) Magnesium Level 1.7 mg/dL (1.8-2.4) Total Bilirubin 0.5 mg/dL (0.2-1.0) Aspartate Amino Transf (AST/SGOT) 28 U/L (15-37) Alanine Aminotransferase (ALT/SGPT) 25 U/L (14-59) Alkaline Phosphatase 102 U/L (46-116) Total Protein 7.3 g/dL (6.4-8.2) Albumin 3.8 g/dL (3.4-5.0) Albumin/Globulin Ratio 1.1 (1.0-1.7) Lipase 83 U/L (73-393) Ethyl Alcohol Level < 10 mg/dL (0-10) Laboratory Tests Test 03/06/20 12:40 03/06/20 12:50 03/07/20 02:00 Urine Collection Type Unknown Urine Color Yellow Urine Clarity Clear Urine pH 5.0 (<5.0-8.0) Urine Specific [place] 1.025 (1.000-1.030) Urine Protein Negative mg/dL (NEG-TRACE) Urine Glucose (UA) Negative mg/dL (NEG) Urine Ketones (Stick) Negative mg/dL (NEG) Urine Blood Negative (NEG) Urine Nitrite Negative (NEG) Urine Bilirubin Negative (NEG) Urine Urobilinogen Dipstick 1.0 mg/dL (0.2 mg/dL) Urine Leukocyte Esterase Small (NEG) Urine RBC 1-2 /HPF (0-2) Urine WBC 11-20 /HPF (0-4) Urine Squamous Epithelial Cells Many /LPF Urine Bacteria Many /HPF (0-FEW) Urine Mucus Marked /LPF Urine Opiates Screen Pos (NEG) Urine Methadone Screen Neg (NEG) Urine Barbiturates Neg (NEG) Urine Phencyclidine Screen Neg (NEG) Urine Amphetamine/Methamphetamine Neg (NEG) Urine Benzodiazepines Screen Pos (NEG) Urine Cocaine Screen Neg (NEG) Urine Cannabinoids Screen Neg (NEG) Urine Ethyl Alcohol Neg (NEG) White Blood Count 6.3 x10^3/uL (4.0-11.0) 7.6 x10^3/uL (4.0-11.0) Red Blood Count 4.41 x10^6/uL (3.50-5.40) 4.31 x10^6/uL (3.50-5.40) Hemoglobin 13.3 g/dL (12.0-15.5) 12.9 g/dL (12.0-15.5) Hematocrit 39.1 % (36.0-47.0) 38.7 % (36.0-47.0) Mean Corpuscular Volume 89 fL (79-100) 90 fL (79-100) Mean Corpuscular Hemoglobin 30 pg (25-35) 30 pg (25-35) Mean Corpuscular Hemoglobin Concent 34 g/dL (31-37) 33 g/dL (31-37) Red Cell Distribution Width 13.3 % (11.5-14.5) 13.3 % (11.5-14.5) Platelet Count 231 x10^3/uL (140-400) 211 x10^3/uL (140-400) Neutrophils (%) (Auto) 54 % (31-73) 72 % (31-73) Lymphocytes (%) (Auto) 32 % (24-48) 19 % (24-48) Monocytes (%) (Auto) 11 % (0-9) 8 % (0-9) Eosinophils (%) (Auto) 3 % (0-3) 1 % (0-3) Basophils (%) (Auto) 1 % (0-3) 0 % (0-3) Neutrophils # (Auto) 3.4 x10^3/uL (1.8-7.7) 5.5 x10^3/uL (1.8-7.7) Lymphocytes # (Auto) 2.0 x10^3/uL (1.0-4.8) 1.5 x10^3/uL (1.0-4.8) Monocytes # (Auto) 0.7 x10^3/uL (0.0-1.1) 0.6 x10^3/uL (0.0-1.1) Eosinophils # (Auto) 0.2 x10^3/uL (0.0-0.7) 0.1 x10^3/uL (0.0-0.7) Basophils # (Auto) 0.0 x10^3/uL (0.0-0.2) 0.0 x10^3/uL (0.0-0.2) Sodium Level 140 mmol/L (136-145) Potassium Level 3.9 mmol/L (3.5-5.1) Chloride Level 104 mmol/L (98-107) Carbon Dioxide Level 30 mmol/L (21-32) Anion Gap 6 (6-14) Blood Urea Nitrogen 19 mg/dL (7-20) Creatinine 0.8 mg/dL (0.6-1.0) Estimated GFR (Cockcroft-Gault) 75.6 BUN/Creatinine Ratio 24 (6-20) Glucose Level 76 mg/dL (70-99) Calcium Level 8.2 mg/dL (8.5-10.1) Magnesium Level 1.7 mg/dL (1.8-2.4) Total Bilirubin 0.5 mg/dL (0.2-1.0) Aspartate Amino Transf (AST/SGOT) 28 U/L (15-37) Alanine Aminotransferase (ALT/SGPT) 25 U/L (14-59) Alkaline Phosphatase 102 U/L (46-116) Total Protein 7.3 g/dL (6.4-8.2) Albumin 3.8 g/dL (3.4-5.0) Albumin/Globulin Ratio 1.1 (1.0-1.7) Lipase 83 U/L (73-393) Ethyl Alcohol Level < 10 mg/dL (0-10) Medications Current Medications Famotidine (Pepcid Vial) 20 mg 1X ONCE IVP Last administered on 03/06/20at 13:18; Start 03/06/20 at 13:30; Stop 03/06/20 at 13:31; Status DC Ondansetron HCl (Zofran) 4 mg 1X ONCE IVP Last administered on 03/06/20at 13:14; Start 03/06/20 at 13:30; Stop 03/06/20 at 13:31; Status DC Morphine Sulfate (Morphine Sulfate) 5 mg 1X ONCE IV Last administered on 03/06/20at 13:15; Start 03/06/20 at 13:00; Stop 03/06/20 at 13:09; Status DC Hydromorphone HCl (Dilaudid) 1 mg 1X ONCE IV Last administered on 03/06/20at 14:06; Start 03/06/20 at 14:00; Stop 03/06/20 at 14:01; Status DC Ondansetron HCl (Zofran) 4 mg 1X ONCE IVP Last administered on 03/06/20at 15:42; Start 03/06/20 at 15:30; Stop 03/06/20 at 15:35; Status DC Hydromorphone HCl (Dilaudid) 1 mg 1X ONCE IV Last administered on 03/06/20at 15:43; Start 03/06/20 at 15:30; Stop 03/06/20 at 15:35; Status DC Ondansetron HCl (Zofran) 4 mg PRN Q8HRS PRN IV NAUSEA/VOMITING; Start 03/06/20 a t 16:00; Stop 03/07/20 at 15:59 Hydromorphone HCl (Dilaudid) 1 mg PRN Q3HRS PRN IV PAIN Last administered on 03/06/20at 16:51; Start 03/06/20 at 16:00 Sodium Chloride 1,000 ml @ 75 mls/hr 1X ONCE IV Last administered on 03/06/20at 15:58; Start 03/06/20 at 16:00; Stop 03/07/20 at 05:19; Status DC Prochlorperazine Edisylate (Compazine) 10 mg 1X ONCE IV Last administered on 03/06/20at 16:51; Start 03/06/20 at 17:00; Stop 03/06/20 at 17:01; Status DC Prochlorperazine Edisylate (Compazine) 10 mg STK-MED ONCE .ROUTE ; Start 03/06/20 at 16:49; Stop 03/06/20 at 16:49; Status DC Sodium Chloride (Normal Saline Flush) 3 ml QSHIFT PRN IV AFTER MEDS AND BLOOD DRAWS; Start 03/06/20 at 17:30 Sodium Chloride 1,000 ml @ 100 mls/hr Q10H IV Last administered on 03/07/20at 02:56; Start 03/06/20 at 17:23 Ondansetron HCl (Zofran) 4 mg PRN Q4HRS PRN IV NAUSEA/VOMITING Last administered on 03/06/20at 20:26; Start 03/06/20 at 17:30 Acetaminophen (Tylenol Supp) 650 mg PRN Q4HRS PRN [place] TEMP OVER 100.4F OR MILD PAIN; Start 03/06/20 at 17:30 Al Hydroxide/Mg Hydroxide (Mylanta Plus Xs) 30 ml PRN DAILY PRN PO HEARTBURN / GAS; Start 03/06/20 at 17:30 Clonidine HCl (Catapres) 0.1 mg PRN Q6HRS PRN PO SBP>160 OR DBP>90; Start 03/06/20 at 17:30 Sodium Monofluorophosphate (Fleet Adult) 133 ml PRN DAILY PRN [place] CONSTIPATION; Start 03/06/20 at 17:30 Docusate Sodium (Colace) 100 mg PRN BID PRN PO HARD STOOLS; Start 03/06/20 at 17:30 Albuterol Sulfate (Ventolin Neb Soln) 2.5 mg PRN Q4HRS PRN NEB SHORTNESS OF BREATH; Start 03/06/20 at 17:30 Guaifenesin (Robitussin) 200 mg PRN Q4HRS PRN PO COUGH; Start 03/06/20 at 17:30 Lorazepam (Ativan) 0.5 mg PRN Q4HRS PRN PO ANXIETY / AGITATION; Start 03/06/20 at 17:30 Hydromorphone HCl (Dilaudid) 0.75 mg PRN Q2HRS PRN IV SEVERE PAIN 7-10; Start 03/06/20 at 17:30 Enoxaparin Sodium (Lovenox 40mg Syringe) 40 mg Q24H SQ ; Start 03/06/20 at 18:00 Acetaminophen (Tylenol) 650 mg PRN Q6HRS PRN PO PAIN Last administered on 03/07/20at 12:18; Start 03/07/20 at 12:15 Vitals/I & O Vital Sign - Last 24 Hours 03/06/20 03/06/20 03/06/20 03/06/20 12:35 13:15 14:06 14:30 Temp 98.2 98.2 Pulse 62 76 Resp 20 33 B/P (MAP) 123/85 (98) 126/77 (93) Pulse Ox 98 99 O2 Delivery Room Air Room Air Room Air Room Air 03/06/20 03/06/20 03/06/20 03/06/20 15:00 15:30 15:43 16:00 Pulse 80 72 88 Resp 33 30 33 33 B/P (MAP) 128/59 (82) 118/59 (78) Pulse Ox 98 94 98 92 O2 Delivery Room Air Room Air Room Air 03/06/20 03/06/20 03/06/20 03/06/20 16:30 17:37 18:27 19:00 Temp 99.1 99.1 Pulse 88 50 Resp 16 18 B/P (MAP) 129/72 (91) Pulse Ox 99 95 O2 Delivery Room Air Room Air Room Air Room Air 03/06/20 03/06/20 03/06/20 03/07/20 20:00 20:44 23:00 03:00 Temp 97.9 99.1 97.9 99.1 Pulse 59 81 Resp 18 18 B/P (MAP) 142/54 (83) 99/59 (72) Pulse Ox 98 94 95 O2 Delivery Room Air Room Air Room Air 03/07/20 03/07/20 03/07/20 07:00 08:00 11:00 Temp 98.2 98.3 98.2 98.3 Pulse 53 57 Resp 18 20 B/P (MAP) 111/65 (80) 118/64 (82) Pulse Ox 94 96 O2 Delivery Room Air Room Air Room Air Intake and Output 03/06/20 03/06/20 03/07/20 15:00 23:00 07:00 Intake Total 1000 ml Balance 1000 ml Justicifation of Admission Dx: Justifications for Admission: Justification of Admission Dx: Yes Hypertension: Cres[place] Worsening of Sym KOLE DE PAZ MD Mar 07, 2020 12:20
--- NOTE | 2020-03-07 12:31 | PDOC3 ---
Discharge Summary Date of Admission: Mar 06, 2020 Date of Discharge: Mar 07, 2020 Follow-Up: 3-5 days Admitting Diagnosis comment: VTE Prophylaxis Ordered VTE Prophylaxis Devices: Yes VTE Pharmacological Prophylaxi: Yes discharge dx Assessment/Plan IMPRESSION: 1. intractable epigastric pain, resolved 2. No acute abnormality of abdomen or pelvis. No renal stone or hydronephrosis. by CT 03/06 3. Normal appendix. 4. Status post cholecystectomy and prior gastric bypass. 2013 5. OBESITY plan admit ADAT Consult DR DE PAZ Reviewed with Dr De Paz, no definite surgical indications will consult GI PLAN see dr HOROWITZ [facility] dvt prophylaxis iv fluid support iv pain control HOME MEDS D/W ER DR GARCÍA AND SURGERY OK WITH D/C TODAY D/C PLANNING 26 MIN Justicifation of Admission Dx: Justicifation of Admission Dx: Justifications for Admission: Justification of Admission Dx: Yes Hypertension: Cresendo Worsening of Sym Comments: INTRACTABLE PAIN Vitals Vitals Vital Signs Date Time Temp Pulse Resp B/P (MAP) Pulse Ox O2 Delivery O2 Flow Rate FiO2 03/07/20 08:00 Room Air 03/07/20 07:00 98.2 53 18 111/65 (80) 94 98.2 Physical Exam General: Alert, Oriented X3, Cooperative, No acute distress Heart: Regular rate, Normal S1, Normal S2 Abdomen: Normal bowel sounds, Soft Extremities: No clubbing, No cyanosis, No edema Skin: No rashes, No breakdown FINAL DIAGNOSIS Problems Medical Problems: (1) Intractable abdominal pain Status: Acute Brief Hospital Course Ms. Baez is a 50 old [sex] who presented with [ EPIGASTRIC PAIN ] CONDITION AT DISCHARGE: Improved Discharge Medications Current Medications Famotidine (Pepcid Vial) 20 mg 1X ONCE IVP Last administered on 03/06/20at 13:18; Start 03/06/20 at 13:30; Stop 03/06/20 at 13:31; Status DC Ondansetron HCl (Zofran) 4 mg 1X ONCE IVP Last administered on 03/06/20at 13:14; Start 03/06/20 at 13:30; Stop 03/06/20 at 13:31; Status DC Morphine Sulfate (Morphine Sulfate) 5 mg 1X ONCE IV Last administered on 03/06/20at 13:15; Start 03/06/20 at 13:00; Stop 03/06/20 at 13:09; Status DC Hydromorphone HCl (Dilaudid) 1 mg 1X ONCE IV Last administered on 03/06/20at 14:06; Start 03/06/20 at 14:00; Stop 03/06/20 at 14:01; Status DC Ondansetron HCl (Zofran) 4 mg 1X ONCE IVP Last administered on 03/06/20at 15:42; Start 03/06/20 at 15:30; Stop 03/06/20 at 15:35; Status DC Hydromorphone HCl (Dilaudid) 1 mg 1X ONCE IV Last administered on 03/06/20at 15:43; Start 03/06/20 at 15:30; Stop 03/06/20 at 15:35; Status DC Ondansetron HCl (Zofran) 4 mg PRN Q8HRS PRN IV NAUSEA/VOMITING; Start 03/06/20 at 16:00; Stop 03/07/20 at 15:59 Hydromorphone HCl (Dilaudid) 1 mg PRN Q3HRS PRN IV PAIN Last administered on 03/06/20at 16:51; Start 03/06/20 at 16:00 Sodium Chloride 1,000 ml @ 75 mls/hr 1X ONCE IV Last administered on 03/06/20at 15:58; Start 03/06/20 at 16:00; Stop 03/07/20 at 05:19; Status DC Prochlorperazine Edisylate (Compazine) 10 mg 1X ONCE IV Last administered on 03/06/20at 16:51; Start 03/06/20 at 17:00; Stop 03/06/20 at 17:01; Status DC Prochlorperazine Edisylate (Compazine) 10 mg STK-MED ONCE .ROUTE ; Start 03/06/20 at 16:49; Stop 03/06/20 at 16:49; Status DC Sodium Chloride (Normal Saline Flush) 3 ml QSHIFT PRN IV AFTER MEDS AND BLOOD DRAWS; Start 03/06/20 at 17:30 Sodium Chloride 1,000 ml @ 100 mls/hr Q10H IV Last administered on 03/07/20at 02:56; Start 03/06/20 at 17:23 Ondansetron HCl (Zofran) 4 mg PRN Q4HRS PRN IV NAUSEA/VOMITING Last administered on 03/06/20at 20:26; Start 03/06/20 at 17:30 Acetaminophen (Tylenol Supp) 650 mg PRN Q4HRS PRN [place] TEMP OVER 100.4F OR MILD PAIN; Start 03/06/20 at 17:30 Al Hydroxide/Mg Hydroxide (Mylanta Plus Xs) 30 ml PRN DAILY PRN PO HEARTBURN / GAS; Start 03/06/20 at 17:30 Clonidine HCl (Catapres) 0.1 mg PRN Q6HRS PRN PO SBP>160 OR DBP>90; Start 03/06/20 at 17:30 Sodium Monofluorophosphate (Fleet Adult) 133 ml PRN DAILY PRN [place] CONSTIPATION; Start 03/06/20 at 17:30 Docusate Sodium (Colace) 100 mg PRN BID PRN PO HARD STOOLS; Start 03/06/20 at 17:30 Albuterol Sulfate (Ventolin Neb Soln) 2.5 mg PRN Q4HRS PRN NEB SHORTNESS OF BREATH; Start 03/06/20 at 17:30 Guaifenesin (Robitussin) 200 mg PRN Q4HRS PRN PO COUGH; Start 03/06/20 at 17:30 Lorazepam (Ativan) 0.5 mg PRN Q4HRS PRN PO ANXIETY / AGITATION; Start 03/06/20 at 17:30 Hydromorphone HCl (Dilaudid) 0.75 mg PRN Q2HRS PRN IV SEVERE PAIN 7-10; Start 03/06/20 at 17:30 Enoxaparin Sodium (Lovenox 40mg Syringe) 40 mg Q24H SQ ; Start 03/06/20 at 18:00 Acetaminophen (Tylenol) 650 mg PRN Q6HRS PRN PO PAIN Last administered on 03/07/20at 12:18; Start 03/07/20 at 12:15 Vital Signs Vital Signs Date Time Temp Pulse Resp B/P (MAP) Pulse Ox O2 Delivery O2 Flow Rate FiO2 03/07/20 11:00 98.3 57 20 118/64 (82) 96 Room Air 98.3 Labs Laboratory Tests Test 03/06/20 12:40 8/6/20 12:50 03/07/20 02:00 Urine Collection Type Unknown Urine Color Yellow Urine Clarity Clear Urine pH 5.0 (<5.0-8.0) Urine Specific [place] 1.025 (1.000-1.030) Urine Protein Negative mg/dL (NEG-TRACE) Urine Glucose (UA) Negative mg/dL (NEG) Urine Ketones (Stick) Negative mg/dL (NEG) Urine Blood Negative (NEG) Urine Nitrite Negative (NEG) Urine Bilirubin Negative (NEG) Urine Urobilinogen Dipstick 1.0 mg/dL (0.2 mg/dL) Urine Leukocyte Esterase Small (NEG) Urine RBC 1-2 /HPF (0-2) Urine WBC 11-20 /HPF (0-4) Urine Squamous Epithelial Cells Many /LPF Urine Bacteria Many /HPF (0-FEW) Urine Mucus Marked /LPF Urine Opiates Screen Pos (NEG) Urine Methadone Screen Neg (NEG) Urine Barbiturates Neg (NEG) Urine Phencyclidine Screen Neg (NEG) Urine Amphetamine/Methamphetamine Neg (NEG) Urine Benzodiazepines Screen Pos (NEG) Urine Cocaine Screen Neg (NEG) Urine Cannabinoids Screen Neg (NEG) Urine Ethyl Alcohol Neg (NEG) White Blood Count 6.3 x10^3/uL (4.0-11.0) 7.6 x10^3/uL (4.0-11.0) Red Blood Count 4.41 x10^6/uL (3.50-5.40) 4.31 x10^6/uL (3.50-5.40) Hemoglobin 13.3 g/dL (12.0-15.5) 12.9 g/dL (12.0-15.5) Hematocrit 39.1 % (36.0-47.0) 38.7 % (36.0-47.0) Mean Corpuscular Volume 89 fL (79-100) 90 fL (79-100) Mean Corpuscular Hemoglobin 30 pg (25-35) 30 pg (25-35) Mean Corpuscular Hemoglobin Concent 34 g/dL (31-37) 33 g/dL (31-37) Red Cell Distribution Width 13.3 % (11.5-14.5) 13.3 % (11.5-14.5) Platelet Count 231 x10^3/uL (140-400) 211 x10^3/uL (140-400) Neutrophils (%) (Auto) 54 % (31-73) 72 % (31-73) Lymphocytes (%) (Auto) 32 % (24-48) 19 % (24-48) Monocytes (%) (Auto) 11 % (0-9) 8 % (0-9) Eosinophils (%) (Auto) 3 % (0-3) 1 % (0-3) Basophils (%) (Auto) 1 % (0-3) 0 % (0-3) Neutrophils # (Auto) 3.4 x10^3/uL (1.8-7.7) 5.5 x10^3/uL (1.8-7.7) Lymphocytes # (Auto) 2.0 x10^3/uL (1.0-4.8) 1.5 x10^3/uL (1.0-4.8) Monocytes # (Auto) 0.7 x10^3/uL (0.0-1.1) 0.6 x10^3/uL (0.0-1.1) Eosinophils # (Auto) 0.2 x10^3/uL (0.0-0.7) 0.1 x10^3/uL (0.0-0.7) Basophils # (Auto) 0.0 x10^3/uL (0.0-0.2) 0.0 x10^3/uL (0.0-0.2) Sodium Level 140 mmol/L (136-145) Potassium Level 3.9 mmol/L (3.5-5.1) Chloride Level 104 mmol/L (98-107) Carbon Dioxide Level 30 mmol/L (21-32) Anion Gap 6 (6-14) Blood Urea Nitrogen 19 mg/dL (7-20) Creatinine 0.8 mg/dL (0.6-1.0) Estimated GFR (Cockcroft-Gault) 75.6 BUN/Creatinine Ratio 24 (6-20) Glucose Level 76 mg/dL (70-99) Calcium Level 8.2 mg/dL (8.5-10.1) Magnesium Level 1.7 mg/dL (1.8-2.4) Total Bilirubin 0.5 mg/dL (0.2-1.0) Aspartate Amino Transf (AST/SGOT) 28 U/L (15-37) Alanine Aminotransferase (ALT/SGPT) 25 U/L (14-59) Alkaline Phosphatase 102 U/L (46-116) Total Protein 7.3 g/dL (6.4-8.2) Albumin 3.8 g/dL (3.4-5.0) Albumin/Globulin Ratio 1.1 (1.0-1.7) Lipase 83 U/L (73-393) Ethyl Alcohol Level < 10 mg/dL (0-10) Laboratory Tests Test 03/06/20 12:40 03/06/20 12:50 03/07/20 02:00 Urine Collection Type Unknown Urine Color Yellow Urine Clarity Clear Urine pH 5.0 (<5.0-8.0) Urine Specific [place] 1.025 (1.000-1.030) Urine Protein Negative mg/dL (NEG-TRACE) Urine Glucose (UA) Negative mg/dL (NEG) Urine Ketones (Stick) Negative mg/dL (NEG) Urine Blood Negative (NEG) Urine Nitrite Negative (NEG) Urine Bilirubin Negative (NEG) Urine Urobilinogen Dipstick 1.0 mg/dL (0.2 mg/dL) Urine Leukocyte Esterase Small (NEG) Urine RBC 1-2 /HPF (0-2) Urine WBC 11-20 /HPF (0-4) Urine Squamous Epithelial Cells Many /LPF Urine Bacteria Many /HPF (0-FEW) Urine Mucus Marked /LPF Urine Opiates Screen Pos (NEG) Urine Methadone Screen Neg (NEG) Urine Barbiturates Neg (NEG) Urine Phencyclidine Screen Neg (NEG) Urine Amphetamine/Methamphetamine Neg (NEG) Urine Benzodiazepines Screen Pos (NEG) Urine Cocaine Screen Neg (NEG) Urine Cannabinoids Screen Neg (NEG) Urine Ethyl Alcohol Neg (NEG) White Blood Count 6.3 x10^3/uL (4.0-11.0) 7.6 x10^3/uL (4.0-11.0) Red Blood Count 4.41 x10^6/uL (3.50-5.40) 4.31 x10^6/uL (3.50-5.40) Hemoglobin 13.3 g/dL (12.0-15.5) 12.9 g/dL (12.0-15.5) Hematocrit 39.1 % (36.0-47.0) 38.7 % (36.0-47.0) Mean Corpuscular Volume 89 fL (79-100) 90 fL (79-100) Mean Corpuscular Hemoglobin 30 pg (25-35) 30 pg (25-35) Mean Corpuscular Hemoglobin Concent 34 g/dL (31-37) 33 g/dL (31-37) Red Cell Distribution Width 13.3 % (11.5-14.5) 13.3 % (11.5-14.5) Platelet Count 231 x10^3/uL (140-400) 211 x10^3/uL (140-400) Neutrophils (%) (Auto) 54 % (31-73) 72 % (31-73) Lymphocytes (%) (Auto) 32 % (24-48) 19 % (24-48) Monocytes (%) (Auto) 11 % (0-9) 8 % (0-9) Eosinophils (%) (Auto) 3 % (0-3) 1 % (0-3) Basophils (%) (Auto) 1 % (0-3) 0 % (0-3) Neutrophils # (Auto) 3.4 x10^3/uL (1.8-7.7) 5.5 x10^3/uL (1.8-7.7) Lymphocytes # (Auto) 2.0 x10^3/uL (1.0-4.8) 1.5 x10^3/uL (1.0-4.8) Monocytes # (Auto) 0.7 x10^3/uL (0.0-1.1) 0.6 x10^3/uL (0.0-1.1) Eosinophils # (Auto) 0.2 x10^3/uL (0.0-0.7) 0.1 x10^3/uL (0.0-0.7) Basophils # (Auto) 0.0 x10^3/uL (0.0-0.2) 0.0 x10^3/uL (0.0-0.2) Sodium Level 140 mmol/L (136-145) Potassium Level 3.9 mmol/L (3.5-5.1) Chloride Level 104 mmol/L (98-107) Carbon Dioxide Level 30 mmol/L (21-32) Anion Gap 6 (6-14) Blood Urea Nitrogen 19 mg/dL (7-20) Creatinine 0.8 mg/dL (0.6-1.0) Estimated GFR (Cockcroft-Gault) 75.6 BUN/Creatinine Ratio 24 (6-20) Glucose Level 76 mg/dL (70-99) Calcium Level 8.2 mg/dL (8.5-10.1) Magnesium Level 1.7 mg/dL (1.8-2.4) Total Bilirubin 0.5 mg/dL (0.2-1.0) Aspartate Amino Transf (AST/SGOT) 28 U/L (15-37) Alanine Aminotransferase (ALT/SGPT) 25 U/L (14-59) Alkaline Phosphatase 102 U/L (46-116) Total Protein 7.3 g/dL (6.4-8.2) Albumin 3.8 g/dL (3.4-5.0) Albumin/Globulin Ratio 1.1 (1.0-1.7) Lipase 83 U/L (73-393) Ethyl Alcohol Level < 10 mg/dL (0-10) Allergies Allergies Coded Allergies Type Severity Reaction Last Updated Verified Iodine and Iodide Containing Produc Allergy Unknown 03/06/20 Yes Sulfa (Sulfonamide Antibiotics) Allergy Unknown 03/06/20 Yes codeine Allergy Unknown 03/06/20 Yes shellfish derived Allergy Unknown 03/06/20 Yes Disposition/Orders: D/C to Home Justicifation of Admission Dx: Justifications for Admission: Justification of Admission Dx: Yes Hypertension: Cresendo Worsening of Sym EDUARD AWAD MD Mar 07, 2020 12:31
[2020-03-07] MEDS ORDERED: ACET325T9 PO (12:34)
[2020-03-07] MEDS ORDERED: MAG30ORA2 PO (12:34)
[2020-03-07] MEDS ORDERED: DOCU-153 PO (12:34)
[2020-03-07] MEDS ORDERED: PANT40TA77 PO (12:34)
--- NOTE | 2020-03-07 12:35 | DISCH ---
DISCHARGE INSTRUCTIONS Condition on Discharge Condition on Discharge: Stable Activity After Discharge Activity Instructions for Disc: Activity as tolerated Lifting Instructions after Dis: No heavy lifting, No pulling or pushing Driving Instructions after Dis: Do not drive Diet after Discharge Diet after Discharge: Low Fat Liquid Texture: Thin Liquid Contacting the DRNafisa after DC Call your doctor for: If your condition worsens Follow-Up Follow up with: [facility]ILLS[facility] Mar 07, 2020 12:35
--- NOTE | 2020-03-07 13:15 | NUR ---
Discharge Note: [facility] Discharge instructions and discharge home medications reviewed with Patient and a copy given. All questions have been answered and understanding verbalized. The following instructions and handouts were given: information about follow up appointments, medications, etc. Called in prescription for Protonix to [facility] Discontinued lines and drains: IV line in left AC removed, catheter tip intact. Patient discharged to home with self care with family member, patient ambulated to discharge vehicle.
== END 2020-03-07 13:15 | disposition home or self-care (01) | DRG 392 ==
LOC: ER 12:33 → 4 NORTH 15:03
PROVIDERS: ADMIT Family Medicine; ATTEND Family Medicine
DX: R10.9 Unspecified abdominal pain (principal); F32.9 Major depressive disorder, single episode, unspecified; F41.9 Anxiety disorder, unspecified; G62.9 Polyneuropathy, unspecified; E66.9 Obesity, unspecified; Z90.49 Acquired absence of other specified parts of digestive tract; Z98.84 Bariatric surgery status; Z68.32 Body mass index [BMI] 32.0-32.9, adult; Z88.5 Allergy status to narcotic agent; Z88.2 Allergy status to sulfonamides; Z91.013 Allergy to seafood; Z98.51 Tubal ligation status
CPT/HCPCS: 36415; 74176; 80053; 80307; 81001; 83690; 83735; 85025; 87040; 87086; 96361; 96374; 96375; 96376; 99285; G0480; J0780; J1170; J2270; J2405; J3490; J7030; G0378